=== PATIENT | female | born 1945 | race Caucasian/White ===

== ENCOUNTER 2018-03-02 08:58 | Outpatient (REF) | payer OTHER, SELFPAY ==
[2018-03-02 20:25] LABS: BUN 14 mg/dL (7-18); CREATININE 0.73 mg/dL (0.55-1.02); Chloride 102 mmol/L (98-107); Glucose 98 mg/dL (70-100); Potassium 3.9 mmol/L (3.5-5.1); Sodium 140 mmol/L (136-145); TSH (W/Ref FT4) 1.18 uIU/mL (0.358-3.74)
[2018-03-03 13:21] LABS: Calcium 9.1 mg/dL (8.5-10.1)
== END 2018-03-02 09:18 ==
LOC: NCHCN 08:58
PROVIDERS: PCP Nurse Practitioner Family; Visit Provider Specialist/Technologist Athletic Trainer
DX: E03.9 Hypothyroidism, unspecified (principal); I10 Essential (primary) hypertension; R21 Rash and other nonspecific skin eruption
CPT/HCPCS: 80048; 84443

== ENCOUNTER 2018-03-12 00:48 | Outpatient (CLI) | payer OTHER, SELFPAY ==
--- NOTE | 2018-03-12 07:45 | DI.MAMMO_ITS ---
SYMPTOM/DIAGNOSIS: SCREENING, PREVENTIVE HEALTH CARE, Z00.00 MAMMOGRAMS: Mammograms were interpreted according to the usual protocol including computer analysis with CAD system, tomosynthesis and C view imaging. The breasts are of moderate density with fairly symmetrical distribution of fibroglandular tissue. No dominant mass or clumped microcalcification is identified in either breast. The current examination is compared with previous examinations including 02/2017 and there is increased prominence of a focal area of asymmetric density projected in the retroareolar portion of the left breast on the CC and perhaps MLO views. Additional mammographic views are requested to include CC and MLO spot compression views of the left breast. CONCLUSION: Additional mammographic views left breast requested as described above. Breast ultrasound may be indicated as well depending on the results of the additional mammographic views. Category 1. Breast density, category B. MQSA ASSESSMENT OF FINDINGS: Incomplete: Needs additional imaging evaluation. Category 0. Patient will receive a letter notifying them of these results. BI-RADS category B. There are scattered areas of fibroglandular density.
== END 2018-03-12 01:08 ==
PROVIDERS: PCP Specialist/Technologist Athletic Trainer; Visit Provider Specialist/Technologist Athletic Trainer
DX: Z12.31 Encounter for screening mammogram for malignant neoplasm of breast (principal); R92.8 Other abnormal and inconclusive findings on diagnostic imaging of breast
CPT/HCPCS: 77063; 77067

== ENCOUNTER 2018-03-31 00:54 | Outpatient (CLI) | payer OTHER, SELFPAY ==
--- NOTE | 2018-03-31 10:35 | DI.COMBO_ITS ---
SYMPTOMS/DIAGNOSIS: F/U MAMMO, FOCAL AREA OF ASYMMETRIC DENSITY LT ADDITIONAL MAMMOGRAPHIC VIEWS LEFT BREAST AND LEFT BREAST ULTRASOUND: Additional images are interpreted according to the usual protocol including tomosynthesis and 2D imaging. Additional mammographic views of the left breast and left breast ultrasound are interpreted in conjunction. These examinations were obtained to evaluate questionable new area of nodularity in central retroareolar left breast seen on recent mammogram. Additional mammographic views show some faint persistent well circumscribed nodularity at this site seen most clearly on CC view. Breast ultrasound shows multiple small breast cysts. The largest of which is a septated cyst measuring about 7 mm in greatest diameter in the 1-2 o'clock position in the breast. There is a 5 mm in diameter partially cystic mass which contains a rounded solid component which is noted in the 12:00 o'clock position in the breast 3 cm from the nipple. Additionally a 3 mm in diameter solid rim calcified nodule is seen. I would note that there is also probable rim calcification although I can not absolutely confirm it to be present in the lesion with the solid component in the 12:00 o'clock position. No doppler abnormality is identified involving any of the intramammary cysts or nodules. CONCLUSION: Probably benign findings in the left breast. Follow up left breast mammogram and left breast ultrasound recommended in 6 months. Category 3. Breast density Category B. MQSA ASSESSMENT OF FINDINGS: Probably benign. Six month follow-up recommended. Category 3. Patient will receive a letter notifying them of these results. BI-RADS category B. There are scattered areas of fibroglandular density.
== END 2018-03-31 01:14 ==
PROVIDERS: PCP Specialist/Technologist Athletic Trainer; Visit Provider Specialist/Technologist Athletic Trainer
DX: R92.8 Other abnormal and inconclusive findings on diagnostic imaging of breast (principal); Z12.31 Encounter for screening mammogram for malignant neoplasm of breast
CPT/HCPCS: 76642; 77063; 77067

== ENCOUNTER 2018-09-29 00:30 | Outpatient (CLI) | payer OTHER, SELFPAY ==
--- NOTE | 2018-09-29 10:46 | DI.COMBO_ITS ---
SYMPTOM/DIAGNOSIS: F/U ABNL MAMMO, 6 MO F/U LEFT MAMMOGRAM AND LEFT BREAST ULTRASOUND: Mammograms were interpreted according to the usual protocol including computer analysis with CAD system, tomosynthesis and C view imaging. Left breast mammogram and left breast ultrasound were obtained to follow areas of nodularity identified mammographically and ultrasonographically on previous mammogram and ultrasound of 03/31/18. On today's examination, no mammographic change is seen with no new mass identified. Ultrasonographically, a rim calcified seen on the previous examination in the 11 o'clock position is essentially unchanged in appearance measuring up to about 6 by 3 mm. in diameter. Solid nodule previously noted in the 12 o'clock position is again seen and is unchanged in size measuring about 4 mm. in diameter. Multiple small breast cysts are also again noted. No new solid mass identified. CONCLUSION: Stable left breast nodules as described above. I would suggest that routine screening examinations resume with a bilateral mammogram in 6 months. Category 3. Breast density, category B. MQSA ASSESSMENT OF FINDINGS: Probably benign. Six month follow-up recommended. Category 3. Patient will receive a letter notifying them of these results. BI-RADS category B. There are scattered areas of fibroglandular density.
== END 2018-09-29 00:50 ==
PROVIDERS: PCP Family Medicine; Visit Provider Specialist/Technologist Athletic Trainer
DX: Z12.31 Encounter for screening mammogram for malignant neoplasm of breast (principal); R92.8 Other abnormal and inconclusive findings on diagnostic imaging of breast; N63.22 Unspecified lump in the left breast, upper inner quadrant; N60.12 Diffuse cystic mastopathy of left breast
CPT/HCPCS: 76642; 77061; 77065; G0279

== ENCOUNTER 2018-11-11 01:06 | Outpatient (CLI) | payer OTHER, SELFPAY ==
--- NOTE | 2018-11-11 14:59 | DI.COMBO_ITS ---
SYMPTOMS/DIAGNOSIS: ABNORMAL MAMMO, LEFT BREAST, R92.8, DISTORTION AT 2 O'CLOCK 9 CM FROM THE NIPPLE ADDITIONAL MAMMOGRAPHIC VIEWS, LEFT BREAST AND LEFT BREAST ULTRASOUND: Additional images are interpreted according to the usual protocol including tomosynthesis and 2D imaging. Additional mammographic views of the left breast and left breast ultrasound were obtained to evaluate an area of asymmetric density with questionable architectural distortion seen in the lateral portion of the left breast on recent mammograms. Additional mammographic views confirm an area of architectural distortion. Comparison with multiple previous tomosynthesis images from 2014, 2015, 2016 and 2017 show no change in appearance in comparison with the previous examinations. Breast ultrasound of this area shows no evidence of a mass. Incidentally, multiple retroareolar left breast cysts are noted, the largest measuring roughly 7 mm in greatest diameter. CONCLUSION: Stable focus of architectural distortion of the lateral aspect of the left breast. No evidence of malignancy. Follow-up mammogram suggested in six months, which should be a bilateral mammogram to resume routine screening of the contralateral breast. Category 3, breast density category B. MQSA ASSESSMENT OF FINDINGS: Probably benign. Six month follow-up recommended. Category 3. Patient will receive a letter notifying them of these results. BI-RADS category B. There are scattered areas of fibroglandular density.
== END 2018-11-11 01:26 ==
PROVIDERS: PCP Family Medicine; Visit Provider Nurse Practitioner Family
DX: Z13.21 Encounter for screening for nutritional disorder (principal); R92.8 Other abnormal and inconclusive findings on diagnostic imaging of breast; N60.12 Diffuse cystic mastopathy of left breast; N60.82 Other benign mammary dysplasias of left breast
CPT/HCPCS: 76642; 77063; 77067

== ENCOUNTER 2019-04-28 09:15 | Outpatient (CLI) | payer OTHER, SELFPAY ==
[2019-04-28 12:15] LABS: Anion Gap 8.3 mmol/L (3-11); BUN 16 mg/dL (7-18); CO2 29.7 mmol/L (21.0-32.0); CREATININE 0.75 mg/dL (0.55-1.02); Calcium 9.2 mg/dL (8.5-10.1); Calculated LDL 139 mg/dL; Chloride 102 mmol/L (98-107); Cholesterol 218 mg/dL (<200); Glucose 95 mg/dL (74-106); HDL Cholesterol 61 mg/dL (40-60); Potassium 3.7 mmol/L (3.5-5.1); Sodium 140 mmol/L (136-145); TSH (W/Ref FT4) 1.58 uIU/mL (0.36-3.74); Triglyceride 94 mg/dL (<150)
== END 2019-04-28 09:35 ==
PROVIDERS: PCP Nurse Practitioner Family; Visit Provider Nurse Practitioner Family
DX: E03.9 Hypothyroidism, unspecified (principal); I10 Essential (primary) hypertension
CPT/HCPCS: 36415; 80048; 80061; 84443

== ENCOUNTER 2019-06-01 00:33 | Outpatient (CLI) | payer OTHER, SELFPAY ==
--- NOTE | 2019-06-01 12:43 | DI.MAMMO_ITS ---
EXAM: MG MAMMO SCREENING CLINICAL HISTORY: SCREENING Z12.39. TECHNIQUE: Bilateral full field digital CC and MLO mammographic images were obtained with 3D tomosyn thesis and utilizing computer aided detection (CAD). COMPARISON: Available for comparison. FINDINGS: Masses/Architectural Distortion: There is an area of breast asymmetry in the outer left breast on the craniocaudad view. No suspicious masses are seen in the right breast. Microcalcifications: No suspicious pleomorphic-type are seen. Skin Thickening/Nipple Retraction: None. IMPRESSION: 1. Area of asymmetric breast tissue in the outer left breast seen on the craniocaudad view. 2. Additional views of the left breast are requested for further evaluation. Ultrasound may be indic ated at that time. BI-RADS Cat 0 - Assessment Incomplete: Need additional imaging evaluation Breast Density - Category B - Scattered areas of fibroglandular density A negative radiographic report should not delay biopsy if a dominant or clinically suspicious mass is present. Up to ten percent of cancers are not identified on mammography. A negative report may reinforce clinical impression. Adenosis and dense breasts may obscure an underlying neoplasm. False positive reports average 6 to 10%. Patient will receive a letter notifying them of these results.
== END 2019-06-01 00:53 ==
PROVIDERS: PCP Nurse Practitioner Family; Visit Provider Nurse Practitioner Family
DX: Z12.31 Encounter for screening mammogram for malignant neoplasm of breast (principal)
CPT/HCPCS: 77063; 77067

== ENCOUNTER 2019-06-09 01:43 | Outpatient (CLI) | payer OTHER, SELFPAY ==
--- NOTE | 2019-06-09 08:43 | DI.MAMMO_ITS ---
EXAM: MG MAMMO SCREEN CALL BACK UNI and breast ultrasound CLINICAL HISTORY: F/U MAMMO, ASYMMETRY IN OUTER LT BREAST. TECHNIQUE: Craniocaudal and mediolateral oblique Full Field Digital Mammography views of the left br east with Computer Aided Diagnosis followed by Tomosynthesis and left breast ultrasound. COMPARISON: No exams were available for comparison FINDINGS: Mammography/Tomosynthesis: Masses/Architectural Distortion: None seen. Microcalcifictions: No suspicious pleomorphic-type are seen. Skin Thickening/Nipple Retraction: None. Left breast US: Echotexture: Normal appearance of the glandular tissue. Shadowing: No suspicious foci. Cyst: Benign-appearing cysts are seen. Solid lesions: None seen. Ductal dilation: None. IMPRESSION: 1. No evidence of malignancy is noted. 2. A six-month follow-up left mammogram is recommended for re-evaluation. BI-RADS Cat 3 - 6 month - Probably Benign Finding: Recommend follow-up mammography in 6 months Breast Density - Category B - Scattered areas of fibroglandular density Findings were discussed with the patient on the date of the examination. A negative radiographic report should not delay biopsy if a dominant or clinically suspicious mass is present. Up to ten percent of cancers are not identified on mammography. A negative report may reinforce clinical impression. Adenosis and dense breasts may obscure an underlying neoplasm. False positive reports average 6 to 10%. Patient will receive a letter notifying them of these results.
--- NOTE | 2019-06-09 09:14 | DI.US_ITS ---
EXAM: MG MAMMO SCREEN CALL BACK UNI and breast ultrasound CLINICAL HISTORY: F/U MAMMO, ASYMMETRY IN OUTER LT BREAST. TECHNIQUE: Craniocaudal and mediolateral oblique Full Field Digital Mammography views of the left br east with Computer Aided Diagnosis followed by Tomosynthesis and left breast ultrasound. COMPARISON: No exams were available for comparison FINDINGS: Mammography/Tomosynthesis: Masses/Architectural Distortion: None seen. Microcalcifictions: No suspicious pleomorphic-type are seen. Skin Thickening/Nipple Retraction: None. Left breast US: Echotexture: Normal appearance of the glandular tissue. Shadowing: No suspicious foci. Cyst: Benign-appearing cysts are seen. Solid lesions: None seen. Ductal dilation: None. IMPRESSION: 1. No evidence of malignancy is noted. 2. A six-month follow-up left mammogram is recommended for re-evaluation. BI-RADS Cat 3 - 6 month - Probably Benign Finding: Recommend follow-up mammography in 6 months Breast Density - Category B - Scattered areas of fibroglandular density Findings were discussed with the patient on the date of the examination. A negative radiographic report should not delay biopsy if a dominant or clinically suspicious mass is present. Up to ten percent of cancers are not identified on mammography. A negative report may reinforce clinical impression. Adenosis and dense breasts may obscure an underlying neoplasm. False positive reports average 6 to 10%. Patient will receive a letter notifying them of these results. EXAM: US BREAST LT LIMITED CLINICAL HISTORY: ABNORMAL LEFT MAMMO TECHNIQUE: Ultrasound performed using standard protocol. COMPARISON: US breast LT limited from 11/11/2018 FINDINGS: IMPRESSION:
== END 2019-06-09 02:03 ==
PROVIDERS: PCP Nurse Practitioner Family; Visit Provider Nurse Practitioner Family
DX: Z12.31 Encounter for screening mammogram for malignant neoplasm of breast (principal); R92.8 Other abnormal and inconclusive findings on diagnostic imaging of breast; N60.12 Diffuse cystic mastopathy of left breast
CPT/HCPCS: 76642; 77063; 77067

== ENCOUNTER 2019-12-14 01:56 | Outpatient (CLI) | payer OTHER, SELFPAY ==
--- NOTE | 2019-12-14 | DI.MAMMO_ITS ---
EXAM: MG MAMMO DIAGNOSTIC UNI CLINICAL HISTORY: F/U ABNL MAMMO, 6 MO F/U, R92.8. COMPARISON: 2010 through 2018 as well as 09 June 2019. TECHNIQUE: Craniocaudal and mediolateral oblique Full Field Digital Mammography views of the left br east with Computer Aided Diagnosis FINDINGS: Mammography/Tomosynthesis: Masses/Architectural Distortion: None seen. There has been no change in the tissue of the lateral por tion of the left breast when compared with the previous examinations. Microcalcifications: No suspicious pleomorphic-type are seen. Benign calcifications. Skin Thickening/Nipple Retraction: None. IMPRESSION: 1. No evidence of malignancy is noted. 2. Unless there is more urgent need, follow-up screening mammography is recommended, as per [employer] guidelines. BI-RADS Category 2 - Benign Findings Breast Density - Category B - Scattered areas of fibroglandular density: A negative radiographic report should not delay biopsy if a dominant or clinically suspicious mass is present. Up to ten percent of cancers are not identified on mammography. A negative report may reinforce clinical impression. Adenosis and dense breasts may obscure an underlying neoplasm. False positive reports average 6 to 10%. Patient will receive a letter notifying them of these results.
== END 2019-12-14 02:16 ==
PROVIDERS: PCP Nurse Practitioner Family; Visit Provider Nurse Practitioner Family
DX: R92.8 Other abnormal and inconclusive findings on diagnostic imaging of breast (principal); R92.2 Inconclusive mammogram; R92.1 Mammographic calcification found on diagnostic imaging of breast
CPT/HCPCS: 77061; 77065; G0279

== ENCOUNTER 2020-05-02 09:41 | Outpatient (REF) | payer OTHER, SELFPAY ==
[2020-05-02 21:05] LABS: Anion Gap 8.2 mmol/L (3-11); BUN 16 mg/dL (7-18); CO2 28.8 mmol/L (21.0-32.0); CREATININE 0.71 mg/dL (0.55-1.02); Calculated LDL 110 mg/dL (<100); Chloride 105 mmol/L (98-107); Cholesterol 187 mg/dL (<200); Glucose 101 mg/dL (74-106); HDL Cholesterol 61 mg/dL (40-60); Potassium 3.5 mmol/L (3.5-5.1); Sodium 142 mmol/L (136-145); TSH 0.95 uIU/mL (0.36-3.74); Triglyceride 80 mg/dL (<150)
== END 2020-05-02 10:01 ==
LOC: NCHCN 09:41
PROVIDERS: PCP Nurse Practitioner Family; Visit Provider Nurse Practitioner Family
DX: I10 Essential (primary) hypertension (principal); E03.9 Hypothyroidism, unspecified; E66.9 Obesity, unspecified
CPT/HCPCS: 80048; 80061; 84443

== ENCOUNTER 2020-05-07 14:56 | Outpatient (RCR) | payer OTHER, SELFPAY ==
--- NOTE | 2020-05-07 15:15 | HOLTER_ITS ---
APPROVED REPORT Exam Type: HOLTER MONITOR APPLICATION Reason for Test: I49.9 Patient Location: O Conclusion This is a 48-hour Holter monitor Atrial fibrillation was present throughout with an average heart rate of 82. Minimum heart rate was 57, maximum 131 There were very rare isolated ventricular ectopic beats Longest RR interval was 2.59 seconds Patient symptoms corresponded to atrial fibrillation rate 95
== END 2020-05-17 23:59 | disposition home or self-care (01) ==
LOC: RT 14:56
PROVIDERS: PCP Nurse Practitioner Family; Visit Provider Nurse Practitioner Family
DX: I49.8 Other specified cardiac arrhythmias (principal); I10 Essential (primary) hypertension; Z82.49 Family history of ischemic heart disease and other diseases of the circulatory system; I48.91 Unspecified atrial fibrillation
CPT/HCPCS: 93225; 93226

== ENCOUNTER 2020-05-16 15:36 | Outpatient (REF) | payer OTHER, SELFPAY ==
[2020-05-16 20:50] LABS: HCT 41.7 % (36.0-46.0); HGB 13.6 g/dL (11.2-15.7); MCH 31.1 pg (27.0-33.0); MCHC 32.6 % (32.0-36.0); MCV 95.4 fL (80-95); MPV 11.6 fL (8.0-11.0); Platelet Count 188 10^3/uL (130-400); RBC 4.37 10^6/uL (3.93-5.22); RDW-SD 49.2 fL; WBC 5.75 10^3/uL (4.4-10.8)
[2020-05-16 21:20] LABS: Ferritin 54 ng/mL (8-252)
[2020-05-17 04:45] LABS: Vitamin D 25 Total 35.2 ng/ml (30-100)
== END 2020-05-16 15:56 ==
LOC: NCHCN 15:36
PROVIDERS: PCP Nurse Practitioner Family; Visit Provider Nurse Practitioner Family
DX: I48.91 Unspecified atrial fibrillation (principal); Z79.01 Long term (current) use of anticoagulants; E66.8 Other obesity
CPT/HCPCS: 82306; 85027; 82728

== ENCOUNTER 2020-06-05 01:33 | Outpatient (CLI) | payer OTHER, SELFPAY ==
--- NOTE | 2020-06-05 13:25 | DI.US_ITS ---
APPROVED REPORT EXAM: Comprehensive 2D, Doppler, and color-flow Echocardiogram Patient Location: Out-Patient [employer]: Tesha Guthrie RDCS (AE) Indications: New A Fib Other Information Study Quality: Adequate Conclusion Normal left ventricular wall thickness and chamber size. Estimated ejection fraction is 55 to 60%. Wall motion is normal Normal right ventricular size and systolic function Mildly dilated left atrium. Right atrium is normal in size Normal aortic valve without stenosis or regurgitation Moderate mitral annular calcification. Trace mitral regurgitation Normal tricuspid valve with trace to mild regurgitation, normal estimated right ventricular systolic pressure Normal pulmonic valve Mildly dilated ascending aorta Wall motion Left Ventricle The left ventricle is grossly normal size. Left ventricle is borderline dilated. Left ventricle is mi ldly dilated. The left ventricular systolic function is normal. The left ventricular ejection fractio n is within the normal range. There is normal left ventricular wall thickness. There is normal LV seg mental wall motion. There is no ventricular septal defect visualized. LVEF is 55-60%. Right Ventricle The right ventricle is normal size. The right ventricular systolic function is normal. The RVSP is 28 .1 mmHg. Atria Left atrium is mildly dilated. The right atrium size is normal. The interatrial septum is intact with no evidence for an atrial septal defect. Aortic Valve The aortic valve is normal in structure. Aortic valve is trileaflet. There is no aortic valvular sten osis. No aortic regurgitation is present. Mitral Valve Moderate mitral annular calcification. No evidence of mitral valve stenosis. Trace mitral regurgitati on. Tricuspid Valve The tricuspid valve is normal in structure. There is no tricuspid valve stenosis. Trace to mild tricu spid regurgitation. Pulmonic Valve The pulmonary valve is normal in structure. There is no pulmonic valvular stenosis. There is no pulmo real valvular regurgitation. Great Vessels The aortic root is normal in size. The ascending aorta is mildly dilated. Aortic arch is not well vis ualized. IVC is normal in size and collapses >50% with inspiration. Pericardium There is no pericardial effusion. 2D Dimensions IVSD d PLAX 0.93 cm F: 0.6-1.0 LV Vol A2C d MOD 63.8 mL LVPW d PLAX 0.86 cm F: 0.6 - 1.0 LV Vol A4C d MOD 64.9 mL LVID d PLAX 4.03 cm F: 3.8 - 5.2 LA vol/ BSA A2C s A-L 34.8 mL/m2 LVDs 2.90 cm F: 2.2 - 3.5 LA vol/ BSA A4C s A-L 29.7 mL/m2 Ao Root d 2.70 cm F: 2.7 - 3.3 LA Vol/ BSA Biplane s A-L 32.5 mL/m2 RA Area A4C 13.18 cm2 LA Area A4C s MOD 20.41 cm2 RA Vol/ BSA A4C s A-L 15.5 mL/m2 LA Area A2C s MOD 21.81 cm2 Ao Asc Diam d 3.27 cm F: 2.3 - 3.1 LV EF A4C MOD 54.8 % LV EF Teichholz 53.6 % LV EF A2C MOD 50.9 % LVEF (Silveira's) 51.11 % F: 54 - 74 LV EF Biplane MOD 51.1 % LV Volume 49.44 mL F: 46 - 106 SV 33.50 mL LV Volume Index 25.22 mL/m2 F: 29 - 61 SV Index 17.04 mL/m2 LV Vol Biplane MOD 65.5 mL FS 27.20 % M-Mode TAPSE 2.45 cm (M/F) >1.7 LV Diastology MV E' medial 0.202 (>0.07 m/s) MV E Vmax 1.24 (0.4-1.3 m/s) LV E/e MED 6.15 (<14) MV E' lateral 0.130 (>0.1 m/s) LV E/e LAT 9.50 (<14) MV E/E' medial 6.15 MV E/E' lateral 9.54 Aortic Valve LVOT Area 2.99 cm2 AoV Area Vmax 1.68 cm2 LVOT Vmax 1.02 m/s AoV Area/ BSA (Vmax) 0.86 cm2/m2 LVOT Mean Winston. 0.66 m/s NATE Mean Winston. 1.67 cm2 LVOT Peak Grad 4.2 mmHg NATE Mean Winston. Index 0.85 cm2/m2 LVOT Mean Grad 2.0 mmHg LVOT VTI 0.240 m LVOT Diam s 1.90 cm AoV Vmax 1.81 m/s Velocity Ratio 0.56 AoV Mean Winston. 1.17 m/s AoV Peak Grad 13.2 mmHg LVOT SV 71.66 mL AoV Mean Grad 6.2 mmHg AoV VTI 0.354 m AoV Area VTI 2.02 cm2 AoV Area/ BSA (VTI) 1.03 cm/m2 Mitral Valve MV DT 210 (160-240 msec) MV PHT 61 msec MV Area PHT 3.62 cm2 MV VTI 0.324 m MV VTI Annulus 0.331 m MV Area VTI 2.27 (4.0-6.0 cm2) Pulmonary Valve PV Vmax 1.05 (0.5-1.5 m/s) RVOT Peak Gr. 2.38 mmHg PV Peak Grad 4.4 mmHg RVOT Mean Gr. 1.25 mmHg PV Mean Grad 1.9 mmHg RVOT VTI 0.160 m PV VTI 0.193 m RVOT Vmax 0.77 m/s Tricuspid Valve TR Peak Grad 25.1 mmHg TR Vmax 2.51 m/s RA Pressure 3.00 mmHg RVSP (TR) 28.1 mmHg
== END 2020-06-05 01:53 ==
PROVIDERS: PCP Nurse Practitioner Family; Visit Provider Nurse Practitioner Family
DX: I07.1 Rheumatic tricuspid insufficiency (principal)
CPT/HCPCS: 93306

== ENCOUNTER 2020-06-22 12:39 | Outpatient (CLI) | payer OTHER, SELFPAY ==
--- NOTE | 2020-06-22 13:00 | RT.EKG_ITS ---
APPROVED REPORT Exam: Resting ECG Patient Location: O Conclusion Atrial fibrillation at a rate of 73. No acute T or ST changes
== END 2020-06-22 12:40 | disposition home or self-care (01) ==
LOC: DI.CARD 13:04
PROVIDERS: PCP Nurse Practitioner Family; Referring Provider Nurse Practitioner Family; Visit Provider Internal Medicine Cardiovascular Disease
DX: I48.91 Unspecified atrial fibrillation (principal)
CPT/HCPCS: 93010

== ENCOUNTER → 2020-06-22 12:39 | Outpatient (BNVA) | payer OTHER, SELFPAY | PROVIDERS: PCP Nurse Practitioner Family; Referring Provider Nurse Practitioner Family; Visit Provider Internal Medicine Cardiovascular Disease | DX: I48.91 Unspecified atrial fibrillation (principal) | CPT/HCPCS: 99204; 99205 ==

== ENCOUNTER 2020-07-02 11:08 | Outpatient (REF) | payer OTHER, SELFPAY ==
--- NOTE | 2020-07-02 10:00 | SKI_PTH ---
PATIENT: Emily Becerra LOC: [facility] U#:[id number] AGE/SX: 74/F ROOM: RE07/02/[address]: Jordan Goldberg DO : 1945 BED: DIS: 07/02/2020 SPEC #: [id number] RECD: 07/02/20 18:28 STATUS: ALEE REQ #: [id number] MARIA ELENA: 07/02/20 10:[address]: Jordan Goldberg DEPT: Surgical Specimen RECD BY: Carrie Florentino ENTERED: 07/02/20 18:29 SP TYPE: SKI OT DR: Siobhan Arriaza Tissues: 1 - SKIN BIOPSY(SHAVE/PUNCH) Procedures: SKIN LEVEL 4 Comments: [id number]
== END 2020-07-02 11:09 | disposition home or self-care (01) ==
LOC: LBN 11:08
PROVIDERS: PCP Nurse Practitioner Family; Visit Provider Otolaryngology Otolaryngology/Facial Plastic Surgery
DX: L82.1 Other seborrheic keratosis (principal); L81.8 Other specified disorders of pigmentation
CPT/HCPCS: 88305

== ENCOUNTER 2020-08-01 01:10 | Outpatient (CLI) | payer OTHER, SELFPAY ==
--- NOTE | 2020-08-01 | DI.MRI_ITS ---
EXAM: MR BRAIN WO CLINICAL HISTORY: [place],R42,A FIB,I48.91 TECHNIQUE: Multisequence MRI scan of the brain was performed on 1.5 jhon unit. COMPARISON: No exams were available for comparison FINDINGS: CEREBRAL PARENCHYMA: No evidence of intracranial hemorrhage, mass effect nor shift of midline structu re. No extraaxial fluid collections. Ventricles are not enlarged nor shifted. There is no significant focal signal abnormality in the cerebellar hemispheres nor within the crys, m idbrain, and thalami. There are multiple foci of subcentimeter periventricular signal abnormality probably consistent with chronic ischemic changes. These are not associated with hemorrhage or surrounding edema nor abnormal focal signal on diffusion imaging to suggest recent ischemic event. PITUITARY GLAND: No mass nor parasellar abnormality. No obvious abnormality in the cavernous sinuses. FLOW VOIDS: The expected flow void are noted. No evidence of obvious aneurysm nor obvious vascular ma lformation. PARANASAL SINUSES: The visualized paranasal sinuses appear unremarkable. ORBITS: No obvious abnormal findings. IMPRESSION: 1. There are multiple small foci of subcentimeter signal abnormality in the Nicole and supraventricular white matter, probably related to chronic ischemic changes. There is no evidence of acute territori al nor lacunar infarction. No evidence of intracranial hemorrhage. DATA REPOSITORY:
== END 2020-08-01 01:30 ==
PROVIDERS: PCP Nurse Practitioner Family; Visit Provider Nurse Practitioner Family
DX: R42 Dizziness and giddiness (principal); I48.91 Unspecified atrial fibrillation; R94.02 Abnormal brain scan
CPT/HCPCS: 70551

== ENCOUNTER 2020-08-17 03:31 | Outpatient (CLI) | payer OTHER, SELFPAY ==
--- NOTE | 2020-08-17 12:53 | DI.MAMMO_ITS ---
EXAM: MAMMO SCREENING CLINICAL HISTORY: SCREENING,Z12.31 TECHNIQUE: Mammograms were interpreted according to the usual protocol including computer analysis w VideoStep system, tomosynthesis and C-view imaging. COMPARISON: FINDINGS: Breast are of moderate density with fairly symmetrical distribution of fibroglandular tissue. An are a of architectural distortion of the lateral aspect of left breast seen on CC view is unchanged from multiple prior studies. There is no evidence of mass or clumped microcalcification of either breast. No other significant change seen. IMPRESSION: No specific evidence of malignancy at this time. Routine screening examinations are suggested at yea rly intervals in this age group according to the ACS ACR guidelines. BI-RADS Category 1 - Negative Breast Density - Category B - Scattered areas of fibroglandular density
== END 2020-08-17 03:51 ==
PROVIDERS: PCP Nurse Practitioner Family; Visit Provider Nurse Practitioner Family
DX: Z12.31 Encounter for screening mammogram for malignant neoplasm of breast (principal)
CPT/HCPCS: 77063; 77067

== ENCOUNTER 2021-05-01 15:20 | Outpatient (REF) | payer OTHER, SELFPAY ==
[2021-05-01 13:41] LABS: Bacteria Rare HPF (Negative); Casts Negative LPF (Negative); Crystals Negative HPF (Negative); Epithelial Cells Negative HPF (Negative); Mucus Negative (Negative); RBC Negative HPF (0-2); WBC Negative HPF (0-5)
[2021-05-01 13:42] LABS: C & S Indicated? C&S Done As Ordered; Other Cells Negative (Negative)
[2021-05-01 14:03] LABS: BUN 15 mg/dL (7-18); CREATININE 0.8 mg/dL (0.55-1.02); Calcium 8.8 mg/dL (8.5-10.1); Calculated LDL 81 mg/dL (<100); Chloride 101 mmol/L (98-107); Cholesterol 145 mg/dL (<200); Glucose 83 mg/dL (74-106); HDL Cholesterol 51 mg/dL (40-60); Potassium 3.3 mmol/L (3.5-5.1); Sodium 139 mmol/L (136-145); TSH 1.49 uIU/mL (0.36-3.74); Triglyceride 69 mg/dL (<150)
[2021-05-01 14:25] LABS: FREE T4 1.61 ng/dL (0.76-1.46)
== END 2021-05-01 15:21 | disposition home or self-care (01) ==
LOC: NCHCN 15:20
PROVIDERS: PCP Nurse Practitioner Family; Visit Provider Nurse Practitioner Family
DX: I10 Essential (primary) hypertension (principal); E03.9 Hypothyroidism, unspecified; N89.8 Other specified noninflammatory disorders of vagina; R82.90 Unspecified abnormal findings in urine
CPT/HCPCS: 80048; 80061; 81015; 84439; 84443; 87086; 87480; 87510; 87660

== ENCOUNTER → 2021-05-31 09:49 | Outpatient (BNVA) | payer OTHER, SELFPAY | PROVIDERS: PCP Nurse Practitioner Family; Referring Provider Nurse Practitioner Family; Visit Provider Internal Medicine Cardiovascular Disease | DX: I48.91 Unspecified atrial fibrillation (principal) | CPT/HCPCS: 99214; 99213 ==

== ENCOUNTER 2021-07-15 14:58 | Outpatient (REF) | payer OTHER, SELFPAY ==
[2021-07-15 15:53] LABS: FREE T4 1.33 ng/dL (0.76-1.46); TSH 2.29 uIU/mL (0.36-3.74)
== END 2021-07-15 14:59 | disposition home or self-care (01) ==
LOC: NCHCN 14:58
PROVIDERS: PCP Nurse Practitioner Family; Visit Provider Nurse Practitioner Family
DX: E03.9 Hypothyroidism, unspecified (principal)
CPT/HCPCS: 84439; 84443

== ENCOUNTER 2021-08-22 01:14 | Outpatient (CLI) | payer MEDICARE, SELFPAY ==
--- NOTE | 2021-08-22 08:30 | DI.MAMMO_ITS ---
Exam(s) MAMMO SCREENING EXAM: MAMMO SCREENING CLINICAL HISTORY: SCREENING, Z12.31 TECHNIQUE: Bilateral full field digital CC and MLO mammographic images were obtained with 3D tomosyn thesis and utilizing computer aided detection (CAD). COMPARISON: Available for comparison. FINDINGS: Masses/Architectural Distortion: None seen. Microcalcifications: No suspicious pleomorphic-type are seen. Skin Thickening/Nipple Retraction: None. IMPRESSION: 1. No significant interval change with no specific features of malignancy noted. 2. Unless there is more urgent need, screening mammography is recommended, as per [place] [employer] guidelines. BI-RADS Category 1 - Negative Breast Density - Category B - Scattered areas of fibroglandular density Breast density category C or D implies that the patient has dense breast tissue. Dense breast tissue is very common and is not abnormal but dense breast tissue can make it harder to find cancer on a ma mmogram. Also, dense breast tissue may increase their breast cancer risk. This information about the result of the mammogram report was provided to the patient to raise their awareness. Use this report when you speak with the patient about their risks for breast cancer, which includes their family hist ory. At that time, you may recommend for more screening tests (Ultrasound or MRI) as they might be us eful based on their risk. A negative radiographic report should not delay biopsy if a dominant or clinically suspicious mass is present. Up to ten percent of cancers are not identified on mammography. A negative report may reinforce clinical impression. Adenosis and dense breasts may obscure an underlying neoplasm. False positive reports average 6 to 10%. Patient will receive a letter notifying them of these results.
== END 2021-08-22 01:34 ==
PROVIDERS: PCP Nurse Practitioner Family; Visit Provider Nurse Practitioner Family
DX: Z12.31 Encounter for screening mammogram for malignant neoplasm of breast (principal)
CPT/HCPCS: 77063; 77067

== ENCOUNTER 2022-05-06 18:10 | Outpatient (REF) | payer MEDICARE, SELFPAY ==
[2022-05-06 16:35] LABS: ALT 30 U/L (14-59); AST 22 U/L (15-37); Albumin 3.5 g/dL (3.4-5.0); Alkaline Phosphatase 80 U/L (46-116); BUN 16 mg/dL (7-18); Bilirubin, Total 0.6 mg/dL (0.2-1.0); CREATININE 0.8 mg/dL (0.55-1.02); Calcium 9.3 mg/dL (8.5-10.1); Calculated LDL 110 mg/dL (<100); Chloride 100 mmol/L (98-107); Cholesterol 211 mg/dL (<200); Estimated GFR 76.31 (mL/min/1.73m2); Glucose 100 mg/dL (74-106); HDL Cholesterol 82 mg/dL (40-60); Potassium 3.5 mmol/L (3.5-5.1); Sodium 137 mmol/L (136-145); TSH 3.81 uIU/mL (0.36-3.74); Total Protein 7.3 g/dL (6.4-8.2); Triglyceride 95 mg/dL (<150)
[2022-05-06 16:53] LABS: FREE T4 1.32 ng/dL (0.76-1.46)
== END 2022-05-06 18:11 | disposition home or self-care (01) ==
LOC: NCHCN 18:10
PROVIDERS: PCP Nurse Practitioner Family; Visit Provider Nurse Practitioner Family
DX: E03.9 Hypothyroidism, unspecified (principal); E78.9 Disorder of lipoprotein metabolism, unspecified; I10 Essential (primary) hypertension; I48.91 Unspecified atrial fibrillation
CPT/HCPCS: 80053; 80061; 84439; 84443

== ENCOUNTER → 2022-05-23 08:51 | Outpatient (BNVA) | payer MEDICARE, SELFPAY | PROVIDERS: PCP Nurse Practitioner Family; Visit Provider Internal Medicine Cardiovascular Disease | DX: I48.91 Unspecified atrial fibrillation (principal) | CPT/HCPCS: 99213 ==

== ENCOUNTER 2022-07-14 13:36 | Outpatient (REF) | payer MEDICARE, SELFPAY ==
[2022-07-14 16:09] LABS: HCT 39.8 % (36.0-46.0); HGB 13.4 g/dL (11.2-15.7); MCH 31.8 pg (27.0-33.0); MCHC 33.7 % (32.0-36.0); MCV 95 fL (80-95); MPV 11.3 fL (8.0-11.0); Platelet Count 237 10^3/uL (130-400); RBC 4.21 10^6/uL (3.93-5.22); RDW 14.6 % (11.7-14.6); WBC 7.31 10^3/uL (4.4-10.8)
[2022-07-14 16:28] LABS: Anion Gap 8.4 mmol/L (3-11); BUN 13 mg/dL (7-18); CO2 28.6 mmol/L (21.0-32.0); CREATININE 0.8 mg/dL (0.55-1.02); Calcium 9.3 mg/dL (8.5-10.1); Chloride 101 mmol/L (98-107); Estimated GFR 76.31 (mL/min/1.73m2); Glucose 93 mg/dL (74-106); Potassium 3.5 mmol/L (3.5-5.1); Sodium 138 mmol/L (136-145)
== END 2022-07-14 13:37 | disposition home or self-care (01) ==
LOC: NCHCN 13:36
PROVIDERS: PCP Nurse Practitioner Family; Visit Provider Nurse Practitioner Family
DX: Z01.818 Encounter for other preprocedural examination (principal); Z01.812 Encounter for preprocedural laboratory examination; I48.19 Other persistent atrial fibrillation; I10 Essential (primary) hypertension
CPT/HCPCS: 80048; 85027

== ENCOUNTER 2022-07-18 01:09 | Outpatient (CLI) | payer MEDICARE, SELFPAY ==
--- NOTE | 2022-07-18 10:45 | DI.RAD_ITS ---
Exam(s) XR HIP LT COMPLETE AP PELVIS EXAM: XR HIP LT COMPLETE AP PELVIS CLINICAL HISTORY: LT GROIN PAIN, R10.32; ? OA. TECHNIQUE: 2D digital imaging was performed. COMPARISON: No exams were available for comparison FINDINGS: Two views: No evidence of pelvic nor hip fracture. However, there are significant degenerative changes in the l eft hip joint. Hip joint space narrowing. Osteophytes femoral head and acetabulum. Lesser amount o f degenerative change in the opposite-right knee. There is osteitis symphysis pubis incidentally not ed. The sacroiliac joints appear unremarkable. No lytic osseous lesions. IMPRESSION: Asymmetric degenerative changes in the left hip. DATA REPOSITORY: RADIATION DOSE DELIVERED:
== END 2022-07-18 01:29 ==
LOC: DI 01:09
PROVIDERS: PCP Nurse Practitioner Family; Visit Provider Nurse Practitioner Family
DX: M25.552 Pain in left hip (principal); R10.32 Left lower quadrant pain; M16.12 Unilateral primary osteoarthritis, left hip
CPT/HCPCS: 73502

== ENCOUNTER 2022-07-25 07:57 | Day surgery (SDC) | payer MEDICARE, SELFPAY ==
[2022-07-25] MEDS: Tropicam./Phenyleph. (1/2.5%) 5 ML BTL OD ×3 (08:33→08:51)
[2022-07-25 08:34] VITALS: BP 145/68; PULSE 68; RESP 16; TEMP 36.2; O2SAT 98
--- NOTE | 2022-07-25 08:50 | W.ANESPRE ---
General Info Date of Service Date Performed: 07/25/22 Height: 5 ft 3 in Weight: 97.6 kg Body Mass Index (BMI): 38.1 Surgical Procedure: Operation Date: 07/25/22 09:55 Proposed Procedure Side Surgeon p Cataract Extraction with IOL Implant Right Demetrio Maya MD Meds Allergies and Home Medications Allergies Allergy/AdvReac Type Severity Reaction Status Date / Time Penicillins Allergy Mild rash Verified 07/25/22 08:28 Home Medication Medication Instructions Recorded hydrochlorothiazide 25 mg tablet 25 mg PO DAILY 03/24/16 syncuhajmsfv-kaogxmwn-svsz 1 ea PO BID 05/07/16 fumarate 7.5 mg-folic acid 400 mcg tablet metoprolol succinate 25 mg 25 mg PO DAILY 05/17/20 tablet,extended release 24 hr aspirin 81 mg tablet,delayed 81 mg PO DAILY 05/01/21 release (Adult Aspirin Regimen) calcium carbonate 600 mg calcium 600 mg PO BID 05/01/21 (1,500 mg) tablet (Calcium) cholecalciferol (vitamin D3) 50 50 mcg PO DAILY 05/01/21 mcg (2,000 unit) capsule clotrimazole-betamethasone 1 1 applic topical BID 05/01/21 %-0.05 % topical cream levothyroxine 75 mcg tablet 137 mcg PO DAILY 05/31/21 (Synthroid) magnesium malate, chelate 125 mg PO DAILY 05/23/22 tumeric 100 mg-emily 150 mg-olive 1 cap PO DAILY 05/23/22 50 mg-oreg 150 mg-caprylate capsule dextrin 3 gram/3.5 gram oral powder 3 g PO DAILY 07/22/22 Current Visit Medications: Current Medications Generic Name Dose Route Start Last Admin Trade Name Freq PRN Reason Stop Dose Admin Acetaminophen 1,000 mg 07/25/22 06:00 Acetaminophen 500 Mg Tab PO Q4H PRN PRN Miscellaneous Medication 0 ml 07/25/22 06:00 07/25/22 08:40 Tropicam./Phenyleph. (1/2.5%) 5 Ml Btl OD 1 drp DIRECTED [facility] Administration Miscellaneous Medication 0 ml 07/25/22 06:00 Prednisolone 1%, Moxifloxacin 0.5%, Nepafenac 0.1% 5ml Btl OD DIRECTED [facility] Tetracaine HCl 0 ml 07/25/22 06:00 Tetracaine 0.5% 4 Ml Btl OD DIRECTED [facility] Active Problems Active Problems: Problem Status Onset Code Cortical cataract of right eye H26.9 Nuclear sclerotic cataract of right eye H25.11 Atrial fibrillation I48.91 Medical History Medical History Cataract [place] HTN (hypertension) Hypothyroidism Left groin pain Surgical History Surgical History Colonoscopy - IV Sedation (05/07/16) Tobacco Smoking/Tobacco Use Status: Former Tobacco Use Alcohol Alcohol Intake: current Alcohol intake frequency: a few times a month Substance Use Substance use: Never Substance use type: does not use Vital Signs and Lab Results Vital Signs Most Recent Vital Signs in EMR: Most Recent Vital Signs Temp Pulse Resp BP Pulse Ox 36.2 C L 68 16 145/68 H 98 07/25/22 08:34 07/25/22 08:34 07/25/22 08:34 07/25/22 08:34 07/25/22 08:34 Lab Results Blood Type / Crossmatch: No Data to Display Complete Blood Count: White Blood Count 7.31 10^3/uL (4.4-10.8) 07/14/22 10:30 Red Blood Count 4.21 10^6/uL (3.93-5.22) 07/14/22 10:30 Hemoglobin 13.4 g/dL (11.2-15.7) 07/14/22 10:30 Hematocrit 39.8 % (36.0-46.0) 07/14/22 10:30 Platelet Count 237 10^3/uL (130-400) 07/14/22 10:30 Complete Metabolic Panel: Sodium 138 mmol/L (136-145) 07/14/22 10:30 Potassium 3.5 mmol/L (3.5-5.1) 07/14/22 10:30 Chloride 101 mmol/L (98-107) 07/14/22 10:30 Carbon Dioxide 28.6 mmol/L (21.0-32.0) 07/14/22 10:30 BUN 13 mg/dL (7-18) 07/14/22 10:30 Creatinine 0.8 mg/dL (0.55-1.02) 07/14/22 10:30 Est GFR (CKD-EPI 2021) 76.31 (mL/min/1.73m2) 07/14/22 10:30 Calcium 9.3 mg/dL (8.5-10.1) 07/14/22 10:30 Glucose 93 mg/dL (74-106) 07/14/22 10:30 Liver Function Panel: No Data to Display Coagulation Panel: No Data to Display Cardiac Panel: No Data to Display Arterial Blood Gas: No Data to Display Venous Blood Gas: No Data to Display Pancreas Panel: No Data to Display Thyroid Panel: No Data to Display Infectious Disease: No Data to Display Blood Cultures: No Data to Display Toxicology Panel: No Data to Display Imaging and Studies Imaging and Studies Study information below may be from another EMR and interpreted by another provider. Please see original notes in EMR for more complete details. EKG Summary: Conclusion Atrial fibrillation at a rate of 73. No acute T or ST changes Echocardiogram Summary: Conclusion Normal left ventricular wall thickness and chamber size. Estimated ejection fraction is 55 to 60%. Wall motion is normal Normal right ventricular size and systolic function Mildly dilated left atrium. Right atrium is normal in size Normal aortic valve without stenosis or regurgitation Moderate mitral annular calcification. Trace mitral regurgitation Normal tricuspid valve with trace to mild regurgitation, normal estimated right ventricular systolic pressure Normal pulmonic valve Mildly dilated ascending aorta Wall motion Anesthesia Assessment and Plan Anesthesia History Personal History: No History of Anesthesia Complications Family History: No Family History of Anesthesia Complications Exercise Tolerance Exercise Tolerance: Metabolic Equivalents<4 Pertinent Negatives Pertinent Negatives: No Symptoms of GERD and No Major Cardiovascular Symptoms or Complaints Cardiac & Pulmonary Exam Cardiac Exam: Normal S1/S2 Heart Sounds Pulmonary Exam: Clear Bilateral Breath Sounds Cardiac and Pulmonary Comment:: AFib persistent Implantable Cardiac Device Does patient have a Pacemaker or an ICD?: No Airway Exam Known Difficult Airway: No Mallampati Class: 3 Mouth Opening: Normal (> 3cm) Thyromental Distance: Greater than 3 cm Neck Range of Motion: Full ROM Neck Circumference: Normal Teeth Condition: Removable Dentures/Plates Upper and Removable Dentures/Plates Lower ASA Classification ASA Score: ASA 3 Emergency Case?: No NPO Status NPO Status: NPO Clears >2 hours, Solids >8 hours Anesthesia Plan Resuscitation Status: Full Code Anesthesia Technique: MAC Anesthesia Airway Planned: Natural Airway Monitors Used: Standard Monitors Preoperative Comments:: 06/09 cards note Assessment & Plan (1) Atrial fibrillation: Patient has permanent atrial fibrillation, asymptomatic. We discussed anticoagulation today and she again declines and wishes to continue with baby aspirin. No cardiac testing or medication changes were therefore recommended today. She was advised to discuss her other ongoing symptoms with primary care and return here for routine follow-up in a year
[2022-07-25 08:53] VITALS: BMI 38.1
[2022-07-25] MEDS: Tetracaine 0.5% 4 ML BTL OD (09:48)
[2022-07-25] MEDS: Duovisc Viscoelastic System EACH 1 EACH (09:48)
[2022-07-25] MEDS: Balanced Salt Soln.-PLUS 500 ML BAG (09:49)
[2022-07-25] MEDS: Lidocaine 1% Pres-Free 5 ML VIAL (09:49)
[2022-07-25] MEDS: Phenylephrine/Lidocaine (15/10) MG/ML 1 ML VIAL (09:50)
[2022-07-25] MEDS: Trypan Blue 0.06% 0.5 ML SYR (09:51)
[2022-07-25] MEDS: Povidone-Iodine Ophth 30 ML BTL (09:51)
--- NOTE | 2022-07-25 10:19 | W.PM.DSUDISC ---
Date of service: 07/25/22 Time of Service: 10:20 Discharge Plan Disposition Patient Disposition: Home Discharge Details Attending Provider: Demetrio Maya Primary Care Provider: Siobhan Arriaza Home Meds and New Rx's Prescriptions: No Action uqjjtje-jbpg-znlwy-oreg-capryl 100 mg-150 mg- 50 mg-150 mg capsule 1 cap PO DAILY magnesium malate, chelate 125 mg magnesium capsule 125 mg PO DAILY hydrochlorothiazide 25 MG tablet 25 mg PO DAILY metoprolol succinate 25 mg tablet extended release 24 hr 25 mg PO DAILY aspirin [Adult Aspirin Regimen] 81 mg tablet,delayed release (DR/EC) 81 mg PO DAILY cholecalciferol (vitamin D3) 50 mcg (2,000 unit) capsule 50 mcg PO DAILY clotrimazole-betamethasone 1-0.05 % cream 1 applic topical BID calcium carbonate [Calcium 600] 600 mg calcium (1,500 mg) tablet 600 mg PO BID levothyroxine [Synthroid] 75 mcg tablet 137 mcg PO DAILY dextrin 3 gram/3.5 gram powder 3 g PO DAILY qbprdsll-qky-eilo fum-folic ac 1 EACH tablet 1 ea PO BID Discharge Instructions Stand Alone Forms: Post-op Topical Cataract, Rosalba Mathis (DSU) Discharge Orders Discharge Orders: Discharge Order (Routine); Ordered 07/25/22 Ordered By: Demetrio Maya DS: Diagnosis Discharge Diagnosis (1) Cortical cataract of right eye: Status: Resolved (2) Nuclear sclerotic cataract of right eye: Status: Resolved
[2022-07-25 10:20] VITALS: BP 130/78; PULSE 54; RESP 16; TEMP 36.1; O2SAT 100
--- NOTE | 2022-07-25 10:20 | W.PM.OP ---
Date of service: 07/25/22 Time of Service: 10:20 Operative Note Operative Note DATE OF PROCEDURE: 07/25/22 PRE-OP DIAGNOSIS: Dense nuclear/cortical cataract, right eye Poorly dilating pupil, right eye Poor red reflex, right eye secondary to cataract POST-OP DIAGNOSIS: same PROCEDURE: Cataract extraction using phacoemulsification with intraocular lens implant, right eye Pupillary dilation and iris stabilization with pupil expansion device Capsular staining with VisionBlue SURGEON: Demetrio Maya ANESTHESIA TYPE: Local By Surgeon and MAC Refer to Anesthesia Record ESTIMATED BLOOD LOSS: 0 PATHOLOGY: none sent COMPLICATIONS: None Patient was transported to: same day Patient's condition: stable Implants: Mike Clareon [id number] Indications: Progressive decreased vision due to cataract, right eye Procedure Description: CATARACT SURGERY OPERATIVE REPORT PREOPERATIVE DIAGNOSIS: Dense nuclear/cortical cataract, right eye Poorly dilating pupil, right eye Poor red reflex, right eye POSTOPERATIVE DIAGNOSIS: Same OPERATION: Cataract extraction using phacoemulsification with posterior chamber intraocular lens implant, right eye. Pupillary dilation and iris stabilization with 6.25 mm pupillary expansion device, right eye Capsular staining with VisionBlue IOL: IOL System Support Administrator/Model: Mike Clareon [id number] IOL Power: + 25.0 diopters IOL Serial Number: [id number] Optic Diameter: 6.0mm Haptic/Overall Diameter: 13.0mm PHACO INFO: Mike Centurion Vision System with OZil and Active Fluidics Cumulative Dispersed Energy (CDE): 6.49 seconds SURGEON: Demetrio Maya MD, MARIA TERESA ANESTHESIA: Monitored Anesthesia Care (MAC), with local sub-tenon's anesthetic infiltration COMPLICATIONS: None SPECIMENS: None INDICATIONS FOR PROCEDURE: The patient is a 76-year-old lady with history of diminished visual acuity in her right eye. She is noted to have a dense nuclear/cortical cataract in the right eye with poorly dilating pupil and shallow anterior chamber. She is significantly symptomatic from decreased vision in the right eye that she desires cataract surgery and attempt to improve and maximize her vision. PROCEDURE: The correct surgical eye was identified and marked as the right eye and the pupil was dilated in the preoperative area using mydriatics and cycloplegics. The dilated pupil size was 3.0 mm. The patient elected to proceed without oral sedation. The patient was brought to the operating room where cardiopulmonary monitoring was instituted and surgical time-out was performed, confirming the correct operative eye and IOL power. Topical anesthesia was administered and ophthalmic povidone-iodine 5% was instilled into the conjunctival fornices. Lidocaine gel was applied to the cornea and the jeffy-ocular area was prepped with Betadine 10% solution and draped in the usual sterile fashion for intraocular surgery, including an aperture drape. A Tegaderm transparent film dressing was cut in half and used to cover the lashes and lid margins. Care was taken to sequester the lashes and lid margins under the Tegaderm dressing. A lid speculum was placed between the lids of the operative eye and the Iza-Beth operating microscope was maneuvered into position. Cristobal scissors were then used to make a conjunctival buttonhole approximately 6mm posterior to the limbus in the inferonasal quadrant. Blunt dissection was carried out to expose bare sclera, and a blunt-tipped sub-tenon?s anesthesia cannula was introduced and passed posteriorly along the globe where non-preserved plain lidocaine was injected into posterior sub-Tenon?s space. A sideport knife was used to make a paracentesis port inferiortemporally. Intraocular phenylephrine/lidocaine was injected into the anterior chamber. Very little additional pupillary dilation was achieved. The anterior chamber was then filled with viscoelastic. A keratome knife was used to construct a two--plane near-clear corneal tunnel extending 2.0mm into clear cornea in the superiortemporal position.. A 6.25 mm pupillary expansion ring was inserted into the pupillary space and engaged with a Kuglen hook. This was quite challenging due to the shallow anterior chamber. Viscoelastic was then removed from the anterior chamber and replaced with an air bubble. VisionBlue was then painted over the anterior lens capsule and allowed to sit for approximately 30 seconds, after which it was irrigated out with balanced salt solution. Viscoat was then used to fill the anterior chamber. A flap was raised on the anterior capsule and capsulorhexis forceps were used to complete a continuous curvilinear capsulorhexis of 5.0 mm. Balanced salt solution was then used to perform cortical cleaving hydrodissection and nuclear hydrodelineation until the lens could be freely rotated within the capsular bag. The lens nucleus was then disassembled and removed within the capsular bag and iris plane using phacoemulsification. Residual cortical material was removed using the I/A handpiece. The posterior capsule was carefully polished to remove as much residual lens epithelial cells as safely possible. The capsular bag was then inflated and the anterior chamber deepened with viscoelastic. The lens implant described above was inserted into the capsular bag using the Mike Autonome Injector. A Kuglen hook was used to dial the IOL into position. The pupil expansion device was then removed in the reverse order of its insertion. Residual viscoelastic was then removed first from posterior to the IOL, then from the anterior chamber using the I/A handpiece. The lens implant was noted to center nicely within the capsular bag. The incisions were stromally hydrated, and the anterior chamber was reformed using BSS. Then 0.5cc of moxifloxacin 1.0mg/ml were injected into the capsular bag and anterior chamber. The incisions were checked with a Weck spear and found to be secure. Several drops of ophthalmic povidone-iodine 5% were then applied to the eye followed by two drops of Imprimis combination prednisolone/moxifloxacin/nepafenac solution. The drapes were removed and a clear plastic protective eye shield was placed over the eye. The patient was then returned to Same Day Surgery in stable condition.
--- NOTE | 2022-07-25 10:32 | W.ANESPOSTOP ---
Postoperative Evaluation Date, Time and Location Date Performed: 07/25/22 Time Performed: 10:32 Patient Location: Day Surgery Unit Vital Signs Most Recent Imported Vital Signs: Most Recent Vital Signs Temp Pulse Resp BP Pulse Ox 36.1 C L 54 L 16 130/78 100 07/25/22 10:20 07/25/22 10:20 07/25/22 10:20 07/25/22 10:20 07/25/22 10:20 Pain Score Most Recent Pain Score: Most Recent Pain Score Pain Level 0 07/25/22 10:20 Assessment Mental Status: Awake (Alert & Oriented to Patient Baseline) Airway and Respiratory Function: Patent airway with normal (patient baseline) respiratory exam Cardiovascular Function: Hemodynamically Stable Hydration Status: Adequately Hydrated Nausea & Vomiting: No Nausea or Vomiting Pain: Pt. Denies Any Pain Peripheral Nerve Block: Patient did not receive a nerve block
== END 2022-07-25 10:44 | disposition home or self-care (01) ==
PROVIDERS: PCP Nurse Practitioner Family; Visit Provider Ophthalmology
PROC: (CPT 66982; principal; 2022-07-25 09:45)
DX: H25.11 Age-related nuclear cataract, right eye (principal); H26.8 Other specified cataract; H57.03 Miosis
CPT/HCPCS: 66982; V2632

== ENCOUNTER 2022-08-08 06:00 | Day surgery (SDC) | payer MEDICARE, SELFPAY ==
[2022-08-08 06:30] VITALS: BP 165/76; PULSE 72; RESP 18; TEMP 36.4; O2SAT 98
[2022-08-08] MEDS: Tropicam./Phenyleph. (1/2.5%) 5 ML BTL OS ×3 (06:42→06:57)
--- NOTE | 2022-08-08 07:02 | ANES.PREOP_ITS ---
General Info Date of Service Date Performed: 08/08/22 Height: 5 ft 3 in Weight: 100.4 kg Body Mass Index (BMI): 39.2 Surgical Procedure: Operation Date: 08/08/22 07:40 Proposed Procedure Side Surgeon p Cataract Extraction with IOL Implant Left Demetrio Maya MD Meds Allergies and Home Medications Allergies Allergy/AdvReac Type Severity Reaction Status Date / Time Penicillins Allergy Mild rash Verified 08/08/22 06:48 Home Medication Medication Instructions Recorded hydrochlorothiazide 25 mg tablet 25 mg PO DAILY 03/24/16 emofnpltwasn-bnacbqnl-bhal 1 ea PO BID 05/07/16 fumarate 7.5 mg-folic acid 400 mcg tablet metoprolol succinate 25 mg 25 mg PO DAILY 05/17/20 tablet,extended release 24 hr aspirin 81 mg tablet,delayed 81 mg PO DAILY 05/01/21 release (Adult Aspirin Regimen) calcium carbonate 600 mg calcium 600 mg PO BID 05/01/21 (1,500 mg) tablet (Calcium) cholecalciferol (vitamin D3) 50 50 mcg PO DAILY 05/01/21 mcg (2,000 unit) capsule clotrimazole-betamethasone 1 1 applic topical BID 05/01/21 %-0.05 % topical cream levothyroxine 75 mcg tablet 137 mcg PO DAILY 05/31/21 (Synthroid) magnesium malate, chelate 125 mg PO DAILY 05/23/22 tumeric 100 mg-emily 150 mg-olive 1 cap PO DAILY 05/23/22 50 mg-oreg 150 mg-caprylate capsule dextrin 3 gram/3.5 gram oral powder 3 g PO DAILY 07/22/22 Current Visit Medications: Current Medications Generic Name Dose Route Start Last Admin Trade Name Freq PRN Reason Stop Dose Admin Acetaminophen 1,000 mg 08/08/22 06:00 Acetaminophen 500 Mg Tab PO Q4H PRN PRN Miscellaneous Medication 0 ml 08/08/22 06:00 08/08/22 06:57 Tropicam./Phenyleph. (1/2.5%) 5 Ml Btl OS 1 drp DIRECTED [facility] Administration Miscellaneous Medication 0 ml 08/08/22 06:00 Prednisolone 1%, Moxifloxacin 0.5%, Nepafenac 0.1% 5ml Btl OS DIRECTED [facility] Tetracaine HCl 0 ml 08/08/22 06:00 Tetracaine 0.5% 4 Ml Btl OS DIRECTED [facility] Active Problems Active Problems: Problem Status Onset Code Atrial fibrillation I48.91 Nuclear sclerotic cataract of right eye H25.11 Cortical cataract of right eye H26.9 Nuclear age-related cataract, left eye H25.12 Posterior subcapsular age-related cataract of left eye H25.042 Medical History Medical History Cataract [place] HTN (hypertension) Hypothyroidism Left groin pain Surgical History Surgical History Colonoscopy - IV Sedation (05/07/16) History of cataract surgery Tobacco Smoking/Tobacco Use Status: Former Tobacco Use Alcohol Alcohol Intake: current Alcohol intake frequency: a few times a month Substance Use Substance use: Never Substance use type: does not use Vital Signs and Lab Results Vital Signs Most Recent Vital Signs in EMR: Most Recent Vital Signs Temp Pulse Resp BP Pulse Ox 36.4 C L 72 18 165/76 H 98 08/08/22 06:30 08/08/22 06:30 08/08/22 06:30 08/08/22 06:30 08/08/22 06:30 Lab Results Blood Type / Crossmatch: No Data to Display Complete Blood Count: White Blood Count 7.31 10^3/uL (4.4-10.8) 07/14/22 10:30 Red Blood Count 4.21 10^6/uL (3.93-5.22) 07/14/22 10:30 Hemoglobin 13.4 g/dL (11.2-15.7) 07/14/22 10:30 Hematocrit 39.8 % (36.0-46.0) 07/14/22 10:30 Platelet Count 237 10^3/uL (130-400) 07/14/22 10:30 Complete Metabolic Panel: Sodium 138 mmol/L (136-145) 07/14/22 10:30 Potassium 3.5 mmol/L (3.5-5.1) 07/14/22 10:30 Chloride 101 mmol/L (98-107) 07/14/22 10:30 Carbon Dioxide 28.6 mmol/L (21.0-32.0) 07/14/22 10:30 BUN 13 mg/dL (7-18) 07/14/22 10:30 Creatinine 0.8 mg/dL (0.55-1.02) 07/14/22 10:30 Est GFR (CKD-EPI 2020) 76.31 (mL/min/1.73m2) 07/14/22 10:30 Calcium 9.3 mg/dL (8.5-10.1) 07/14/22 10:30 Glucose 93 mg/dL (74-106) 07/14/22 10:30 Liver Function Panel: No Data to Display Coagulation Panel: No Data to Display Cardiac Panel: No Data to Display Arterial Blood Gas: No Data to Display Venous Blood Gas: No Data to Display Pancreas Panel: No Data to Display Thyroid Panel: No Data to Display Infectious Disease: No Data to Display Blood Cultures: No Data to Display Toxicology Panel: No Data to Display Imaging and Studies Imaging and Studies Study information below may be from another EMR and interpreted by another provider. Please see original notes in EMR for more complete details. EKG Summary: Conclusion Atrial fibrillation at a rate of 73. No acute T or ST changes Echocardiogram Summary: Conclusion Normal left ventricular wall thickness and chamber size. Estimated ejection fraction is 55 to 60%. Wall motion is normal Normal right ventricular size and systolic function Mildly dilated left atrium. Right atrium is normal in size Normal aortic valve without stenosis or regurgitation Moderate mitral annular calcification. Trace mitral regurgitation Normal tricuspid valve with trace to mild regurgitation, normal estimated right ventricular systolic pressure Normal pulmonic valve Mildly dilated ascending aorta Wall motion Anesthesia Assessment and Plan Anesthesia History Personal History: No History of Anesthesia Complications Family History: No Family History of Anesthesia Complications Exercise Tolerance Exercise Tolerance: Metabolic Equivalents<4 Cardiac & Pulmonary Exam Cardiac Exam: Normal S1/S2 Heart Sounds Pulmonary Exam: Clear Bilateral Breath Sounds Implantable Cardiac Device Does patient have a Pacemaker or an ICD?: No Airway Exam Known Difficult Airway: No Mallampati Class: 3 Mouth Opening: Normal (> 3cm) Thyromental Distance: Greater than 3 cm Neck Range of Motion: Full ROM Neck Circumference: Normal Teeth Condition: Removable Dentures/Plates Upper and Removable Dentures/Plates Lower ASA Classification ASA Score: ASA 3 Emergency Case?: No NPO Status NPO Status: NPO Clears >2 hours, Solids >8 hours Anesthesia Plan Resuscitation Status: Full Code Anesthesia Technique: MAC Anesthesia Airway Planned: Natural Airway Monitors Used: Standard Monitors
[2022-08-08 07:04] VITALS: BMI 39.2
[2022-08-08] MEDS: Lidocaine 1% Pres-Free 5 ML VIAL (07:45)
[2022-08-08] MEDS: Balanced Salt Soln.-PLUS 500 ML BAG (07:46)
[2022-08-08] MEDS: Povidone-Iodine Ophth 30 ML BTL (07:46)
[2022-08-08] MEDS: Phenylephrine/Lidocaine (15/10) MG/ML 1 ML VIAL (07:46)
[2022-08-08] MEDS: Trypan Blue 0.06% 0.5 ML SYR (07:47)
[2022-08-08] MEDS: Duovisc Viscoelastic System EACH 1 EACH (07:47)
[2022-08-08] MEDS: Tetracaine 0.5% 4 ML BTL OS (07:48)
[2022-08-08 08:12] VITALS: BP 138/69; PULSE 71; RESP 17; TEMP 36.5; O2SAT 99
--- NOTE | 2022-08-08 08:12 | ROE_ITS ---
Date of service: 08/08/22 Time of Service: 08:13 Operative Note Operative Note DATE OF PROCEDURE: 08/08/22 PRE-OP DIAGNOSIS: Dense nuclear/cortical cataract, left eye Poorly dilating pupil, left eye Poor red reflex, left eye POST-OP DIAGNOSIS: same PROCEDURE: Cataract extraction using phacoemulsification with intraocular lens implant, right eye Pupillary dilation and iris stabilization with pupillary expansion device Capsular staining with VisionBlue SURGEON: Demetrio Maya ANESTHESIA TYPE: Local By Surgeon and MAC Refer to Anesthesia Record ESTIMATED BLOOD LOSS: 0 PATHOLOGY: none sent COMPLICATIONS: None Patient was transported to: same day Patient's condition: stable Implants: Mike Clareon [id number] Indications: Progressive decreased vision due to cataract, right eye Procedure Description: CATARACT SURGERY OPERATIVE REPORT PREOPERATIVE DIAGNOSIS: Dense nuclear/cortical cataract, left eye Poorly dilating pupil, left eye Poor red reflex, left eye POSTOPERATIVE DIAGNOSIS: Same OPERATION: Cataract extraction using phacoemulsification with posterior chamber intraocular lens implant, left eye. Pupillary dilation and iris stabilization with 6.25 mm pupil expansion device Capsular staining with VisionBlue IOL: IOL Community Service Coordinator/Model: Mike Clareon [id number] IOL Power: + 25.0 diopters IOL Serial Number: [id number] Optic Diameter: 6.0mm Haptic/Overall Diameter: 13.0mm PHACO INFO: Mike Centurion Vision System with OZil and Active Fluidics Cumulative Dispersed Energy (CDE): 10.61 seconds SURGEON: Demetrio Maya MD, MARIA TERESA ANESTHESIA: Monitored Anesthesia Care (MAC), with local sub-tenon's anesthetic infiltration COMPLICATIONS: None SPECIMENS: None INDICATIONS FOR PROCEDURE: The patient is a 76-year-old lady with history of diminished visual acuity in both eyes secondary to development of dense bilateral nuclear/cortical cataract. She is a short axial length with shallow anterior chamber and poorly dilating pupils. She is significantly symptomatic from cataract that she desires cataract surgery and attempt to improve and maximize her vision. She has already undergone cataract surgery in the right eye and is doing well postoperatively. She now presents for cataract surgery in the left eye. PROCEDURE: The correct surgical eye was identified and marked as the left eye and the pupil was dilated in the preoperative area using mydriatics and cycloplegics. The dilated pupil size was 3.5 mm. The patient elected to proceed without oral sedation. The patient was brought to the operating room where cardiopulmonary monitoring was instituted and surgical time-out was performed, confirming the correct operative eye and IOL power. Topical anesthesia was administered and ophthalmic povidone-iodine 5% was instilled into the conjunctival fornices. Lidocaine gel was applied to the cornea and the jeffy-ocular area was prepped with Betadine 10% solution and draped in the usual sterile fashion for intraocular surgery, including an aperture drape. A Tegaderm transparent film dressing was cut in half and used to cover the lashes and lid margins. Care was taken to sequester the lashes and lid margins under the Tegaderm dressing. A lid speculum was placed between the lids of the operative eye and the Iza-Beth operating microscope was maneuvered into position. Cristobal scissors were then used to make a conjunctival buttonhole approximately 6mm posterior to the limbus in the inferonasal quadrant. Blunt dissection was carried out to expose bare sclera, and a blunt-tipped sub-tenon?s anesthesia cannula was introduced and passed posteriorly along the globe where non- preserved plain lidocaine was injected into posterior sub-Tenon?s space. A sideport knife was used to make a paracentesis port superiorly. Intraocular phenylephrine/lidocaine was injected into the anterior chamber. No additional pupillary dilation was achieved. The anterior chamber was then filled with viscoelastic. Provisc was used initially. A keratome knife was used to co nstruct a two--plane near-clear corneal tunnel extending 2.0mm into clear cornea in the temporal position. A 6.25 mm pupillary expansion device was then inserted into the pupillary space and engaged with the Kuglen hook. The irrigation/aspiration handpiece was then used to remove the viscoelastic and the anterior chamber. VisionBlue was then injected into the anterior chamber and allowed to sit for 12 to 15 seconds for capsular staining.. A flap was raised on the anterior capsule and capsulorhexis forceps were used to complete a continuous curvilinear capsulorhexis of 5.0 mm. Balanced salt solution was then used to perform cortical cleaving hydrodissection and nuclear hydrodelineation until the lens could be freely rotated within the capsular bag. The lens nucleus was then disassembled and removed within the capsular bag and iris plane using phacoemulsification. Residual cortical material was removed using the I/A handpiece. The posterior capsule was carefully polished to remove as much residual lens epithelial cells as safely possible. The capsular bag was then inflated and the anterior chamber deepened with viscoelastic. The lens implant described above was inserted into the capsular bag using the Mike Autonome Injector. A Kuglen hook was used to dial the IOL into position. The pupil expansion device was then removed in the reverse order of its insertion. Residual viscoelastic was then removed first from posterior to the IOL, then from the anterior chamber using the I/A handpiece. The lens implant was noted to center nicely within the capsular bag. The incisions were stromally hydrated, and the anterior chamber was reformed using BSS. Then 0.5cc of moxifloxacin 1.0mg/ml were injected into the capsular bag and anterior chamber. The incisions were checked with a Weck spear and found to be secure. Several drops of ophthalmic povidone-iodine 5% were then applied to the eye followed by two drops of Imprimis combination prednisolone/moxifloxacin/nepafenac solution. The drapes were removed and a clear plastic protective eye shield was placed over the eye. The patient was then returned to Same Day Surgery in stable condition.
--- NOTE | 2022-08-08 08:12 | W.PM.DSUDISC ---
Date of service: 08/08/22 Time of Service: 08:12 Discharge Plan Disposition Patient Disposition: Home Discharge Details Attending Provider: Demetrio Maya Primary Care Provider: Siobhan Arriaza Home Meds and New Rx's Prescriptions: No Action fzxwtqj-djxa-pajsb-oreg-capryl 100 mg-150 mg- 50 mg-150 mg capsule 1 cap PO DAILY magnesium malate, chelate 125 mg magnesium capsule 125 mg PO DAILY hydrochlorothiazide 25 MG tablet 25 mg PO DAILY metoprolol succinate 25 mg tablet extended release 24 hr 25 mg PO DAILY aspirin [Adult Aspirin Regimen] 81 mg tablet,delayed release (DR/EC) 81 mg PO DAILY cholecalciferol (vitamin D3) 50 mcg (2,000 unit) capsule 50 mcg PO DAILY clotrimazole-betamethasone 1-0.05 % cream 1 applic topical BID calcium carbonate [Calcium 600] 600 mg calcium (1,500 mg) tablet 600 mg PO BID levothyroxine [Synthroid] 75 mcg tablet 137 mcg PO DAILY dextrin 3 gram/3.5 gram powder 3 g PO DAILY wcnqiuzy-iou-rvsr fum-folic ac 1 EACH tablet 1 ea PO BID Discharge Instructions Stand Alone Forms: Post-op Topical Cataract, Rosalba Mathis (DSU) Discharge Orders Discharge Orders: Discharge Order (Routine); Ordered 08/08/22 Ordered By: Demetrio Maya DS: Diagnosis Discharge Diagnosis (1) Nuclear age-related cataract, left eye: Status: Resolved (2) Posterior subcapsular age-related cataract of left eye: Status: Resolved
--- NOTE | 2022-08-08 08:33 | W.ANESPOSTOP ---
Postoperative Evaluation Date, Time and Location Date Performed: 08/08/22 Time Performed: 08:12 Patient Location: Day Surgery Unit Vital Signs Most Recent Imported Vital Signs: Most Recent Vital Signs Temp Pulse Resp BP Pulse Ox 36.5 C 71 17 138/69 99 08/08/22 08:12 08/08/22 08:12 08/08/22 08:12 08/08/22 08:12 08/08/22 08:12 Pain Score Most Recent Pain Score: Most Recent Pain Score Pain Level 0 08/08/22 08:12 Assessment Mental Status: Awake (Alert & Oriented to Patient Baseline) Airway and Respiratory Function: Patent airway with normal (patient baseline) respiratory exam Cardiovascular Function: Hemodynamically Stable Hydration Status: Adequately Hydrated Nausea & Vomiting: No Nausea or Vomiting Pain: Pt. Denies Any Pain Peripheral Nerve Block: Patient did not receive a nerve block
== END 2022-08-08 08:35 | disposition home or self-care (01) ==
LOC: SUR 08:48
PROVIDERS: PCP Nurse Practitioner Family; Visit Provider Ophthalmology
PROC: (CPT 66982; principal; 2022-08-08 07:30)
DX: H25.12 Age-related nuclear cataract, left eye (principal); H25.042 Posterior subcapsular polar age-related cataract, left eye; H57.09 Other anomalies of pupillary function; H57.89 Other specified disorders of eye and adnexa; I10 Essential (primary) hypertension; I48.91 Unspecified atrial fibrillation; Z98.41 Cataract extraction status, right eye
CPT/HCPCS: 66982; V2632

== ENCOUNTER 2022-08-25 00:04 | Outpatient (CLI) | payer MEDICARE, SELFPAY ==
--- NOTE | 2022-08-25 | DI.MAMMO_ITS ---
Exam(s) MAMMO SCREENING EXAM: MAMMO SCREENING CLINICAL HISTORY: SCREENING MAMMO FOR BREAST CANCER Z12.31 TECHNIQUE: Bilateral full field digital CC and MLO mammographic images were obtained with 3D tomosyn thesis and utilizing computer aided detection (CAD). COMPARISON: Available for comparison. FINDINGS: Masses/Architectural Distortion: None seen. Microcalcifications: No suspicious pleomorphic-type are seen. Skin Thickening/Nipple Retraction: None. IMPRESSION: 1. No significant interval change with no specific features of malignancy noted. 2. Unless there is more urgent need, screening mammography is recommended, as per [employer] guidelines. BI-RADS Category 1 - Negative Breast Density - Category B - Scattered areas of fibroglandular density Breast density category C or D implies that the patient has dense breast tissue. Dense breast tissue is very common and is not abnormal but dense breast tissue can make it harder to find cancer on a ma mmogram. Also, dense breast tissue may increase their breast cancer risk. This information about the result of the mammogram report was provided to the patient to raise their awareness. Use this report when you speak with the patient about their risks for breast cancer, which includes their family hist ory. At that time, you may recommend for more screening tests (Ultrasound or MRI) as they might be us eful based on their risk. A negative radiographic report should not delay biopsy if a dominant or clinically suspicious mass is present. Up to ten percent of cancers are not identified on mammography. A negative report may reinforce clinical impression. Adenosis and dense breasts may obscure an underlying neoplasm. False positive reports average 6 to 10%. Patient will receive a letter notifying them of these results.
== END 2022-08-25 00:24 ==
LOC: DI 00:05
PROVIDERS: PCP Nurse Practitioner Family; Visit Provider Nurse Practitioner Family
DX: Z12.31 Encounter for screening mammogram for malignant neoplasm of breast (principal)
CPT/HCPCS: 77063; 77067

== ENCOUNTER → 2022-09-26 07:49 | Outpatient (BNVA) | payer MEDICARE, SELFPAY | PROVIDERS: PCP Nurse Practitioner Family; Referring Provider Nurse Practitioner Family; Visit Provider Student in an Organized Health Care Education/Training Program | DX: M16.12 Unilateral primary osteoarthritis, left hip (principal) | CPT/HCPCS: 99213 ==

== ENCOUNTER 2023-01-15 13:18 | Outpatient (CLI) | payer MEDICARE, SELFPAY ==
--- NOTE | 2023-01-15 09:45 | DI.RAD_ITS ---
Exam(s) XR KNEE RT 4V AP,LAT,VIOLA,PAT EXAM: XR KNEE RT 4V AP,LAT,VIOLA,PAT CLINICAL HISTORY: knee pain. TECHNIQUE: 2D digital imaging was performed of the right knee. Four views obtained. Merchant, AP, la teral and PA tunnel views were obtained. COMPARISON: No exams were available for comparison FINDINGS: BONES: No acute fracture is present. No bony destructive lesion is seen. JOINTS: Wpzx-cq-ttmxhawt degenerative changes are present with moderate joint space narrowing in the medial femoral tibial joint and periarticular spurring involving all 3 joint compartments. No joint effusion is seen. SOFT TISSUE: Normal. IMPRESSION: Degenerative changes of the right knee. DATA REPOSITORY: RADIATION DOSE DELIVERED:
--- NOTE | 2023-01-15 09:45 | DI.RAD_ITS ---
Exam(s) XR KNEE LT 4V AP,LAT,VIOLA,PAT EXAM: XR KNEE LT 4V AP,LAT,VIOLA,PAT CLINICAL HISTORY: knee pain. TECHNIQUE: 2D digital imaging was performed of the left knee. Four images were obtained. Merchant, AP, lateral and PA tunnel views were obtained. COMPARISON: None. FINDINGS: BONES: No acute fracture is present. No bony destructive lesion is seen. JOINTS: There is narrowing of the femoral tibial joint. No joint effusion is seen. No loose body. SOFT TISSUE: Normal. IMPRESSION: Mild joint space narrowing. DATA REPOSITORY: RADIATION DOSE DELIVERED:
== END 2023-01-15 13:19 | disposition home or self-care (01) ==
LOC: DIORS 13:18
PROVIDERS: PCP Nurse Practitioner Family; Referring Provider Nurse Practitioner Family
DX: M25.561 Pain in right knee (principal); M25.562 Pain in left knee
CPT/HCPCS: 20610; 73564; J1040

== ENCOUNTER → 2023-01-22 03:40 | Outpatient (CLI) | payer MEDICARE, SELFPAY ==
--- NOTE | 2023-01-22 14:36 | DI.RAD_ITS ---
Exam(s) RF JOINT INJECTION FLUORO GUID EXAM: RF JOINT INJECTION FLUORO GUID CLINICAL HISTORY: L HIP INJ UNDER FLUORO,OA LT HIP, M16.12 TECHNIQUE: 2D and realtime digital imaging was performed. CONTRAST MATERIAL: Refer to procedure report. COMPARISON: No exams were available for comparison FINDINGS: Fluoroscopy was provided for Dr. Nunn during the performance of a left hip injection. Please re joyce to the procedure report for complete details. Ka,r=0.41 mGy IMPRESSION: RADIATION DOSE DELIVERED:
[2023-01-22] MEDS: methylPREDNISolone ACETATE 80 MG/ML VIAL IM (14:52)
[2023-01-22] MEDS: Bupivacaine 0.5% Pres-Free 10 ML VIAL 5 ML IJ (14:53)
[2023-01-22] MEDS: Omnipaque 300 MG/ML 10 ML BTL IJ (14:54)
--- NOTE | 2023-01-23 07:49 | W.PROCNOTE ---
Date of service: 01/22/23 Time of Service: 14:30 Procedure Note Date of procedure: 01/22/23 Procedure: Left Hip Injection with Fluoroscopic Guidance Surgeon/Proceduralist/Physician: Sonny Nunn Procedure Diagnosis: Left Hip Osteoarthritis Procedure Indications: Emily has had persistent pain of the LEFT hip and groin. Noninvasive measures have been tried. To serve as both diagnostic and therapeutic, an injection under fluoroscopy was recommended. I had discussed the risks of the procedure and the patient elected to proceed. Procedure Description: Emily was greeted in the flouroscopy room. The correct side was identified and the consent was reviewed with the patient and signed. The patient was then placed in the supine position on the fluoroscopy table. The LEFT hip was then prepped with Chloraprep. The anterolateral injection starting point was identiifed by bony landmarks and fluoroscopy. The skin and soft tissue in the tract of the injection was anesthetized with 1% Lidocaine. A spinal needle was then inserted deep into the hip joint at the level of the lateral femoral neck under fluoroscopic guidance. A small amount of Omnipaque solution was injected to confirm intraarticular placement. Once confirmed, the hip was injected with 5cc of 0.5% Bupivicaine and 80mg of Depo-Medrol. A bandaid was placed on the injection site. The patient tolerated the procedure well and noted improvement in pre-injection pain.
== END ==
PROVIDERS: PCP Nurse Practitioner Family; Visit Provider Student in an Organized Health Care Education/Training Program
DX: M16.12 Unilateral primary osteoarthritis, left hip (principal); M25.552 Pain in left hip
CPT/HCPCS: 20610; 77002; J1040

== ENCOUNTER 2023-05-13 16:29 | Outpatient (REF) | payer MEDICARE, SELFPAY ==
[2023-05-13 21:37] LABS: ESR 8 mm/hr (0-30)
[2023-05-13 23:05] LABS: BUN 19 mg/dL (7-18); CREATININE 0.8 mg/dL (0.55-1.02); Calcium 9.4 mg/dL (8.5-10.1); Chloride 99 mmol/L (98-107); Estimated GFR 75.84 (mL/min/1.73m2); FREE T4 1.29 ng/dL (0.76-1.46); Glucose 87 mg/dL (74-106); Potassium 3.6 mmol/L (3.5-5.1); Sodium 138 mmol/L (136-145); TSH 2.08 uIU/mL (0.36-3.74)
[2023-05-13 23:18] LABS: HDL Cholesterol 70 mg/dL (40-60); LDL CHOLESTEROL 92 mg/dL (<100)
[2023-05-14 17:32] LABS: Rheumatoid Factor <8.6 IU/mL (<12.0)
[2023-05-16 13:27] LABS: c-ANCA Negative (Negative); p-ANCA Negative (Negative)
[2023-05-19 15:56] LABS: ANA Interpretation Positive (Negative)
== END 2023-05-13 16:30 | disposition home or self-care (01) ==
LOC: NCHCN 16:29
PROVIDERS: PCP Nurse Practitioner Family; Visit Provider Nurse Practitioner Family
DX: E03.9 Hypothyroidism, unspecified (principal); M25.50 Pain in unspecified joint
CPT/HCPCS: 80048; 83721; 85652; 83718; 84439; 84443; 86038; 86255; 86431

== ENCOUNTER → 2023-05-15 01:50 | Outpatient (CLI) | payer MEDICARE, SELFPAY ==
--- NOTE | 2023-05-15 10:08 | DI.RAD_ITS ---
Exam(s) XR LUMBAR SPINE COMPLETE EXAM: XR LUMBAR SPINE COMPLETE CLINICAL HISTORY: LOW BACK PAIN, M54.50. TECHNIQUE: 2D digital imaging was performed. Five views. COMPARISON: No exams were available for comparison FINDINGS: BONES: No fracture or destructive lesion. Vertebral body heights are maintained. Severe facet hypert rophy identified, greatest at L4-5.. DISKS: Mild narrowing L3-4 through L5-S1 disc spaces prominent endplate osteophytes in the lower thor acic and lumbar spine, greater on the right side. ALIGNMENT: Slight degenerative spondylolisthesis at L3-4, L4-5 and L5-S1. No significant scoliosis. SOFT TISSUE: Nor aorta heavily calcified. Normal diameter. IMPRESSION: Severe facet joint degenerative changes. Prominent endplate osteophytes. DATA REPOSITORY: RADIATION DOSE DELIVERED:
== END ==
PROVIDERS: PCP Nurse Practitioner Family; Visit Provider Nurse Practitioner Family
DX: M46.96 Unspecified inflammatory spondylopathy, lumbar region (principal)
CPT/HCPCS: 72110

== ENCOUNTER 2023-05-22 08:40 | Outpatient (CLI) | payer MEDICARE, SELFPAY ==
--- NOTE | 2023-05-22 08:30 | RT.EKG_ITS ---
APPROVED REPORT Exam: Resting ECG Reason for Exam: follow up Patient Location: O HR:85 bpm ECG Measurements Heart Rate 85 AXIS [place] [id number] P [id number] QRSd 78 QRS 68 QT 475 T 34 QTc 565 Conclusion Atrial fibrillation...V-rate 62-114, irreg A-activity Borderline low voltage, extremity leads...all extremity leads <0.6mV Anteroseptal infarct, old...Q >40mS, V1-V2 Borderline ST depression, anterolateral leads...ST <-0.07mV, I aVL V2-V6 Prolonged QT interval...QTc >500mS Baseline wander in lead(s) V3,V4,V5,V6 I have reviewed and interpreted ECG and agree with software generated interpretation.
== END 2023-05-22 08:41 | disposition home or self-care (01) ==
LOC: DI.CARD 08:40
PROVIDERS: PCP Nurse Practitioner Family; Visit Provider Internal Medicine Interventional Cardiology
DX: I48.91 Unspecified atrial fibrillation (principal)
CPT/HCPCS: 93010

== ENCOUNTER → 2023-05-22 08:49 | Outpatient (BNVA) | payer MEDICARE, SELFPAY | PROVIDERS: PCP Nurse Practitioner Family; Visit Provider Internal Medicine Interventional Cardiology | DX: I48.11 Longstanding persistent atrial fibrillation (principal); I10 Essential (primary) hypertension; R06.09 Other forms of dyspnea; M54.50 Low back pain, unspecified | CPT/HCPCS: 93005; 99213 ==

== ENCOUNTER → 2023-08-14 00:53 | Outpatient (CLI) | payer MEDICARE, SELFPAY ==
--- NOTE | 2023-08-14 14:30 | DI.US_ITS ---
APPROVED REPORT EXAM: Comprehensive 2D, Doppler, and color-flow Echocardiogram Patient Location: Out-Patient Crime Specialist: Tesha Guthrie RDCS (AE) Indications: Exertional dyspnea, atrial fibrillation, CHF Other Information Study Quality: Adequate. Technically limited study due to body habitus. Conclusion Normal left ventricular wall thickness and chamber size EF is 55-60% . Wall motion is normal. Patie nt is in atrial fibrillation with beat to beat variation Normal right ventricualr size and function Left atrium is moderately dilated. Right atrium is mildly dilated Mild aortic vavle sclerosi Mild mitral annular calcification Trace to mild mitral and tricuspid regurgitation RVSP is 30 mmHg Wall motion Left Ventricle The left ventricle is normal size. The left ventricular systolic function is normal. The left ventric ular ejection fraction is within the normal range. There is normal left ventricular wall thickness. T here is normal LV segmental wall motion. There is no ventricular septal defect visualized. LVEF is 56 %. Right Ventricle The right ventricle is normal size. The right ventricular systolic function is normal. Atria The left atrium is moderately dilated The right atrium size is mildly dilated The interatrial septum is intact with no evidence for an atrial septal defect. Aortic Valve The aortic valve is mildly sclerotic and trileaflet Aortic valve is trileaflet. There is no aortic v alvular stenosis. No aortic regurgitation is present. Mitral Valve Mild mitral annular calcification. No evidence of mitral valve stenosis. Trace to mild mitral regurgi tation. Tricuspid Valve The tricuspid valve is normal in structure. There is no tricuspid valve stenosis. Trace tricuspid reg urgitation. The RVSP is 30.0 mmHg. Pulmonic Valve The pulmonary valve is normal in structure. There is no pulmonic valvular stenosis. Trace pulmonic re gurgitation. Great Vessels The aortic root is normal in size. The ascending aorta is normal in size. IVC is normal in size and c ollapses >50% with inspiration. Pericardium There is no pericardial effusion. 2D Dimensions IVSD d PLAX 1.10 cm F: 0.6-1.0 Ao Root d 2.56 cm F: 2.7 - 3.3 LVPW d PLAX 1.10 cm F: 0.6 - 1.0 Ao Asc Diam d 2.84 cm F: 2.3 - 3.1 LVID d PLAX 4.38 cm F: 3.8 - 5.2 LVDs 3.08 cm F: 2.2 - 3.5 LV EF Teichholz 57.1 % FS 29.74 % LV EDV (Teich) 86.9 mL LV ESV (Teich) 37.3 mL M-Mode TAPSE 2.30 cm (M/F) >1.7 Auto EF LV EDV A4C 91.6 mL LV EDV A2C 122.6 mL LV EDV BP 103.7 mL LV ESV A4C 38.0 mL LV ESV A2C 53.1 mL LV ESV BP 45.3 mL LVEF(%) A4C 58.6 % LVEF(%) A2C 56.7 % LVEF(%) BP 56.3 % LV SV A4C 53.7 ml LV SV A2C 69.5 ml LV SV BP 58.4 ml LV CO A4C 4.1 L/min LV CO A2C 4.7 L/min LV CO BP 4.4 L/min HR A4C 77.06 BPM HR A2C 67.30 BPM LV EDV Index (BP) LA Volume LA Length A4C 6.5 cm LA Length A2C 6.2 cm LA Area A4C s 23.22 cm2 LA Area A2C s 22.31 cm2 LA Vol A4C A-L 70.37 mL LA Vol A2C A-L 68.39 mL LA Vol Biplane A-L 71.2 mL LA Vol/BSA A4C A-L LA Vol/BSA A2C A-L LA Vol/BSA BP A-L 34.9 mL/m2 LA Vol A4C MOD 65.4 mL LA Vol A2C MOD 65.0 mL LA Vol BP MOD 66.7 mL RA Volume RA Area A4C 17.7 cm2 RA ESV A4C (A-L) 48.1mL RA Vol/BSA A4C A-L RA Length A4C 5.5 cm RA ESV A4C (MOD) 46.0mL LV Diastology MV E' medial 0.108 (>0.07 m/s) MV E Vmax 0.78 (0.4-1.3 m/s) MV E/E' MED 7.23 (<14) MV A Vmax 1.10 (0.4-1.3 m/s) MV E' lateral 0.103 (>0.1 m/s) E/A Ratio 0.7 MV E/E' LAT 7.60 (<14) MV E' Average 0.105 m/s MV E/E'(average) 7.41 Aortic Valve AoV Vmax 1.72 m/s LVOT Vmax 1.04 m/s AoV Peak Grad 11.8 mmHg LVOT Peak Grad 4.3 mmHg AoV Area (Vmax) 1.75 cm2 LVOT VTI 0.252 m AoV VTI 0.375 m LVOT Mean Grad 2.7 mmHg AoV Mean Winston. 1.17 m/s LVOT SV 72.74 mL AoV Mean Grad 6.3 mmHg LVOT Diam s 1.90 cm AoV Area (VTI) 1.94 cm2 Velocity Ratio 0.60 Mitral Valve MV DT 194 (160-240 msec) MV Vmax TIPS 1.19 m/s MV Mean Grad 1.6 (<2mmHg) MV VTI 0.332 m Pulmonary Valve PV Vmax 0.98 (0.5-1.5 m/s) RVOT Vmax 0.97 m/s PV Peak Grad 3.8 mmHg RVOT Peak Gr. 3.8 mmHg PV Mean Winston 0.65 m/s RVOT VTI 0.207 m PV Mean Grad 2.0 mmHg RVOT Mean Gr. 2.0 mmHg Tricuspid Valve RA Pressure 3.00 mmHg TR Vmax 2.60 m/s TV S' 0.12 m/s TR Peak Grad 27.0 mmHg RVSP (TR) 30.0 mmHg
== END ==
PROVIDERS: PCP Nurse Practitioner Family; Visit Provider Internal Medicine Interventional Cardiology
DX: I50.9 Heart failure, unspecified (principal)
CPT/HCPCS: 93306

== ENCOUNTER → 2023-08-21 08:51 | Outpatient (BNVA) | payer MEDICARE, SELFPAY | PROVIDERS: PCP Nurse Practitioner Family; Referring Provider Nurse Practitioner Family; Visit Provider Internal Medicine Cardiovascular Disease | DX: I48.11 Longstanding persistent atrial fibrillation (principal); I10 Essential (primary) hypertension | CPT/HCPCS: 99213 ==

== ENCOUNTER → 2023-08-27 04:57 | Outpatient (CLI) | payer MEDICARE, SELFPAY ==
--- NOTE | 2023-08-27 11:50 | DI.MAMMO_ITS ---
Exam(s) MAMMO SCREENING EXAM: MAMMO SCREENING CLINICAL HISTORY: Z12.31 Encounter for screening mammogram for malabigail neop of breast TECHNIQUE: Bilateral full field digital CC and MLO mammographic images were obtained with 3D tomosyn thesis and utilizing computer aided detection (CAD). COMPARISON: Available for comparison. FINDINGS: Masses/Architectural Distortion: There is stable well-circumscribed nodules in both breasts. No new nodules or areas of architectural distortion are present. Microcalcifications: No suspicious pleomorphic-type are seen. Stable benign type calcifications are s een in the breasts bilaterally. Skin Thickening/Nipple Retraction: None. IMPRESSION: 1. No significant interval change with no specific features of malignancy noted. 2. Unless there is more urgent need, screening mammography is recommended, as per [employer] guidelines. BI-RADS Category 2 - Benign Findings Breast Density - Category B - Scattered areas of fibroglandular density Breast density category C or D implies that the patient has dense breast tissue. Dense breast tissue is very common and is not abnormal but dense breast tissue can make it harder to find cancer on a ma mmogram. Also, dense breast tissue may increase their breast cancer risk. This information about the result of the mammogram report was provided to the patient to raise their awareness. Use this report when you speak with the patient about their risks for breast cancer, which includes their family hist ory. At that time, you may recommend for more screening tests (Ultrasound or MRI) as they might be us eful based on their risk. A negative radiographic report should not delay biopsy if a dominant or clinically suspicious mass is present. Up to ten percent of cancers are not identified on mammography. A negative report may reinforce clinical impression. Adenosis and dense breasts may obscure an underlying neoplasm. False positive reports average 6 to 10%. Patient will receive a letter notifying them of these results.
== END ==
PROVIDERS: PCP Nurse Practitioner Family; Visit Provider Nurse Practitioner Family
DX: Z12.31 Encounter for screening mammogram for malignant neoplasm of breast (principal); R92.323 Mammographic fibroglandular density, bilateral breasts
CPT/HCPCS: 77063; 77067

== ENCOUNTER 2024-05-23 15:47 | Outpatient (CLI) | payer MEDICARE, SELFPAY ==
--- NOTE | 2024-05-23 09:15 | DI.RAD_ITS ---
Exam(s) XR HIP LT COMPLETE AP PELVIS EXAM: XR HIP LT COMPLETE AP PELVIS CLINICAL HISTORY: left hip DJD. TECHNIQUE: 2D digital imaging was performed of the left hip. Two views were obtained. AP pelvis an d lateral left hip views were obtained. COMPARISON: CR XR HIP LT COMPLETE AP PELVIS from 07/18/2022 FINDINGS: BONES: No acute fracture is present. No bony destructive lesion is seen. JOINTS: No dislocation present. There are marked degenerative changes seen in the left hip including joint space lost and osteophytes on the acetabulum and femoral head. There is shown mild progression of the degenerative changes since the prior examination. SOFT TISSUE: Normal. IMPRESSION: Marked degenerative changes seen in the left hip. DATA REPOSITORY: RADIATION DOSE DELIVERED:
== END 2024-05-23 15:48 | disposition home or self-care (01) ==
LOC: DIORS 15:47
PROVIDERS: PCP Family Medicine; Referring Provider Family Medicine; Visit Provider Student in an Organized Health Care Education/Training Program
DX: M16.12 Unilateral primary osteoarthritis, left hip (principal); M17.11 Unilateral primary osteoarthritis, right knee
CPT/HCPCS: 20610; 99213; J1010; 73502

== ENCOUNTER → 2024-06-16 09:39 | Outpatient (BNVA) | payer MEDICARE, SELFPAY | PROVIDERS: PCP Family Medicine; Referring Provider Family Medicine; Visit Provider Student in an Organized Health Care Education/Training Program | DX: M16.12 Unilateral primary osteoarthritis, left hip (principal) | CPT/HCPCS: 99214 ==

== ENCOUNTER 2024-08-12 00:56 | Outpatient (CLI) | payer MEDICARE, SELFPAY ==
[2024-08-12 11:37] LABS: HCT 40.5 % (36.0-46.0); HGB 13.8 g/dL (11.2-15.7); MCH 32.5 pg (27.0-33.0); MCHC 34.1 % (32.0-36.0); MCV 96 fL (80-95); MPV 9.8 fL (8.0-11.0); Platelet Count 225 10^3/uL (130-400); RBC 4.24 10^6/uL (3.93-5.22); RDW 13.9 % (11.7-14.6); RDW-SD 49.1 fL
[2024-08-12 11:52] LABS: Hemoglobin A1C 5.5 % (<5.7)
[2024-08-12 12:11] LABS: Anion Gap 4.7 mmol/L (3-11); BUN 20 mg/dL (7-18); CO2 33.3 mmol/L (21.0-32.0); CREATININE 0.7 mg/dL (0.55-1.02); Calcium 9.8 mg/dL (8.5-10.1); Chloride 95 mmol/L (98-107); Estimated GFR 88.47 (mL/min/1.73m2); Glucose 98 mg/dL (74-106); Potassium 3.7 mmol/L (3.5-5.1); Sodium 133 mmol/L (136-145)
[2024-08-12 12:21] LABS: Calculated LDL 83 mg/dL (<100); Cholesterol 181 mg/dL (<200); HDL Cholesterol 79 mg/dL (>or=50); Magnesium 2.1 mg/dL (1.8-2.4); TSH (W/Ref FT4) 3.78 uIU/mL (0.36-3.74); Triglyceride 96 mg/dL (<150)
[2024-08-12 12:37] LABS: FREE T4 1.42 ng/dL (0.76-1.46)
== END 2024-08-12 00:57 | disposition home or self-care (01) ==
LOC: LBO 00:56
PROVIDERS: PCP Family Medicine; Visit Provider Student in an Organized Health Care Education/Training Program
DX: Z83.3 Family history of diabetes mellitus (principal); I48.91 Unspecified atrial fibrillation; E78.5 Hyperlipidemia, unspecified; Z00.00 Encounter for general adult medical examination without abnormal findings
CPT/HCPCS: 36415; 80048; 80061; 85027; 83036; 83735; 84439; 84443

== ENCOUNTER 2024-08-19 08:23 | Outpatient (CLI) | payer MEDICARE, SELFPAY ==
--- NOTE | 2024-08-19 08:15 | RT.EKG_ITS ---
APPROVED REPORT Exam: Resting ECG Reason for Exam: Preop Patient Location: O HR:69 bpm ECG Measurements Heart Rate 69 AXIS SD [id number] P [id number] QRSd 93 QRS 77 QT 390 T 35 QTc 418 Conclusion Atrial fibrillation...V-rate 61- 82, irreg A-activity Low voltage, precordial leads...precordial leads <1.0mV
== END 2024-08-19 08:24 | disposition home or self-care (01) ==
LOC: DI.CARD 08:23
PROVIDERS: PCP Family Medicine; Visit Provider Internal Medicine Cardiovascular Disease
DX: I48.11 Longstanding persistent atrial fibrillation (principal)
CPT/HCPCS: 93010

== ENCOUNTER → 2024-08-19 08:47 | Outpatient (BNVA) | payer MEDICARE, SELFPAY | PROVIDERS: PCP Family Medicine; Visit Provider Internal Medicine Cardiovascular Disease | DX: M16.12 Unilateral primary osteoarthritis, left hip (principal); I48.11 Longstanding persistent atrial fibrillation | CPT/HCPCS: 93005; 99214 ==

== ENCOUNTER 2024-08-24 08:08 | Day surgery (SDC) | payer MEDICARE, SELFPAY ==
[2024-08-24] VITALS (17 sets, daily range): BP systolic 127–179; BP diastolic 40–78; PULSE 45–71; RESP 13–31; TEMP 36–36.5; O2SAT 93–100; BMI 40.1
--- NOTE | 2024-08-24 07:22 | PDOC.DSDIS_ITS ---
Date of service: 08/24/24 Discharge Plan Disposition Patient Disposition: Home Condition: Good Discharge Details Reason For Visit: L THR Attending Provider: Sonny Nunn Primary Care Provider: Ellie Gray V Home Meds and New Rx's Prescriptions: New acetaminophen 500 mg tablet 1,000 mg PO TID Qty: 90 3RF aspirin 81 mg tablet,delayed release (DR/EC) 81 mg PO BID Qty: 60 0RF celecoxib 200 mg capsule 200 mg PO BID Qty: 60 0RF dexamethasone 4 mg tablet 4 mg PO DAILY Qty: 2 0RF docusate sodium 100 mg capsule 100 mg PO BID PRNQty: 28 0RF pantoprazole 40 mg tablet,delayed release (DR/EC) 40 mg PO DAILY Qty: 14 0RF oxycodone 5 mg tablet 5 mg PO Q4H MDD 6 tabs PRN (Reason: pain) Qty: 12 0RF Continued metoprolol succinate 25 mg tablet extended release 24 hr 50 mg PO DAILY Qty: 180 3RF rojpocow-urqh-fuygh-oreg-capry 100 mg-150 mg- 50 mg-150 mg capsule 1 cap PO DAILY magnesium chelate, malate 125 mg magnesium capsule 125 mg PO DAILY furosemide 20 mg tablet 20 mg PO DAILY hydrochlorothiazide 25 MG tablet 25 mg PO DAILY cholecalciferol (vitamin D3) 50 mcg (2,000 unit) capsule 50 mcg PO DAILY clotrimazole-betamethasone 1-0.05 % cream 1 applic topical BID calcium carbonate [Calcium 600] 600 mg calcium (1,500 mg) tablet 600 mg PO BID levothyroxine [Synthroid] 75 mcg tablet 137 mcg PO DAILY dextrin 3 gram/3.5 gram powder 3 g PO DAILY yfzplxpj-shy-dobp fum-folic ac 1 EACH tablet 1 ea PO BID Discontinued meloxicam 15 mg tablet 15 mg PO DAILY aspirin [Adult Aspirin Regimen] 81 mg tablet,delayed release (DR/EC) 81 mg PO DAILY Discharge Instructions Additional Instructions: Total Hip Discharge Instructions Activity: The most important activity is to walk. You should try to take short walks a few times a day. You have no restrictions on movement or positioning, but do not try to force what you do. You will find some stiffness and weakness with hip flexion (lifting your knee). Do not try to strengthen this too early, continue to practice walking and stairs and this will come. - Outpatient physical therapy can be helpful to help return you to a normal gait and improve your flexibility and strength. This can start around 2 weeks. For some patients, it?s not necessary. Usually this is determined at the time of discharge or at the first post-operative visit. - You should wear the PURVI hose on both legs for 2 weeks. Dressing: Keep the surgical dressing in place for at least one week. After the first week it may be removed and replace with light gauze and tape or nothing. It may get wet after 3 days but avoid soaking the dressing. If it gets wet, just lightly pat dry. It is important to always keep some gauze between skin folds, especially when you are sitting. Spend some time with the wound exposed when you are lying flat as the incision does wrinkle onto itself. Medications: - You should take Tylenol and an anti-inflammatory Celebrex as your primary pain control medications. If the Celebrex is too expensive or not covered, please call the office for another alternative (Advil/Ibuprofen or Naproxen/Aleve). - You have been prescribed a stronger pain medication Oxycodone for breakthrough pain, take as needed as prescribed. - You have also been prescribed a stomach acid reduction agent Pantoprozole to help reduce stomach acid and reflux. - You have also been prescribed Decadron to help with post-operative nausea and pain. You will take this for two days starting tomorrow. - You will be taking Aspirin 81mg twice a day for DVT prevention unless instructed otherwise. - If you have constipation you should take Colace or Miralax (both [id number]). It takes most people 3-4 days to have a bowel movement. Follow-up: 2 weeks If you have any acute concerns or questions, please do not hesitate to contact the office at [phone]. You may contact Dr. Nunn with any questions after hours through the hospital at [phone] or on his cell phone at [phone]. Stand Alone Forms: Anesthesia Discharge Inst., Rosalba Mathis ([facility]) Referrals: Sonny Nunn MD [ [facility] STAFF PHYSICIAN] - 09/08/24 11:15 am Equipment/Supplies: Walker Activity:: Activity as Tolerated Shower/Bathe:: 72 hours Diet:: As Tolerated Discharge Orders Discharge Orders: Discharge Order (Routine); Ordered 08/24/24 Ordered By: Everett Guajardo DS: Diagnosis Discharge Diagnosis (1) Primary osteoarthritis of left hip: Status: Chronic
[2024-08-24] MEDS: Celecoxib 200 MG CAP 400 MG PO (09:05)
[2024-08-24] MEDS: Acetaminophen 500 MG TAB 1000 MG PO (09:05)
--- NOTE | 2024-08-24 09:25 | W.ANESPRE ---
General Info Date of Service Date Performed: 08/24/24 Height: 5 ft 3 in Weight: 102.9 kg Body Mass Index (BMI): 40.1 Surgical Procedure: Operation Date: 08/24/24 10:05 Proposed Procedure Side Surgeon p Hip Total Hip Anterior, ACTIS Left Sonny Nunn MD Meds Allergies and Home Medications Allergies Allergy/AdvReac Type Severity Reaction Status Date / Time Penicillins Allergy Mild rash Verified 08/24/24 08:57 Home Medication ?Medication ?Instructions ?Recorded hydrochlorothiazide 25 mg tablet 25 mg PO DAILY 03/24/16 ejmjfqctxqfn-ytuyqyud-mmsm 1 ea PO BID 05/07/16 fumarate 7.5 mg-folic acid 400 mcg tablet calcium carbonate (Calcium 600) 600 mg PO BID 05/01/21 cholecalciferol (vitamin D3) 50 50 mcg PO DAILY 05/01/21 mcg (2,000 unit) capsule clotrimazole-betamethasone 1 1 applic topical BID 05/01/21 %-0.05 % topical cream levothyroxine 75 mcg tablet 137 mcg PO DAILY 05/31/21 (Synthroid) magnesium chelate, malate 125 mg PO DAILY 05/23/22 turmeric 100 mg-emily 150 1 cap PO DAILY 05/23/22 mg-olive 50 mg-oreg 150 mg-capryl capsule dextrin 3 gram/3.5 gram oral powder 3 g PO DAILY 07/22/22 metoprolol succinate 25 mg 50 mg (2 x 25 mg) PO DAILY #180 05/25/23 tablet,extended release 24 hr tabs furosemide 20 mg tablet 20 mg PO DAILY 08/12/24 acetaminophen 500 mg tablet 1,000 mg (2 x 500 mg) PO TID #90 08/24/24 tabs aspirin 81 mg tablet,delayed 81 mg PO BID #60 tabs 08/24/24 release celecoxib 200 mg capsule 200 mg PO BID #60 caps 08/24/24 dexamethasone 4 mg tablet 4 mg PO DAILY #2 tabs 08/24/24 docusate sodium 100 mg capsule 100 mg PO BID PRN #28 caps 08/24/24 oxycodone 5 mg tablet 5 mg PO Q4H PRN pain #12 tabs 08/24/24 pantoprazole 40 mg tablet,delayed 40 mg PO DAILY #14 tabs 08/24/24 release Current Visit Medications: Current Medications Generic Name Dose Route Start Last Admin Trade Name Freq PRN Reason Stop Dose Admin Acetaminophen 1,000 mg 08/24/24 06:00 08/24/24 09:05 Acetaminophen 500 Mg Tab PO 08/24/24 23:59 1,000 mg PREOP ALLISON Administration Acetaminophen 1,000 mg 08/24/24 07:21 Acetaminophen 500 Mg Tab PO 09/23/24 08:29 TID PRN Analgesia Celecoxib 400 mg 08/24/24 06:00 08/24/24 09:05 Celecoxib 200 Mg Cap PO 08/24/24 23:59 400 mg PREOP ALLISON Administration Docusate Sodium 100 mg 08/24/24 07:21 Docusate Sodium 100 Mg Cap PO 09/23/24 07:20 BID PRN PRN Constipation Gabapentin 300 mg 08/24/24 06:00 Gabapentin 300 Mg Cap PO 08/24/24 23:59 PREOP ALLISON Ringer's Solution 1,000 mls @ 80 mls/hr 08/24/24 06:00 IV 08/24/24 23:59 INFUSION ALLISON Cefazolin Sodium/Dextrose 2 gm in 50 mls @ 100 mls/hr 08/24/24 06:00 Ancef Duplex IVPB 08/24/24 23:59 PREOP ALLISON Tranexamic Acid/Sodium Chloride 1,000 mg in 100 mls @ 600 mls/hr 08/24/24 06:00 IVPB 08/24/24 23:59 PREOP ALLISON IV Miscellaneous Supplies 1 each 08/24/24 06:00 Iv Access IV 08/24/24 23:59 DIRECTED ALLISON Ondansetron HCl 4 mg 08/24/24 07:21 Ondansetron 4 Mg/2 Ml Vial IVP 09/23/24 07:20 Q6H PRN PRN Nausea Oxycodone HCl 0 mg 08/24/24 07:21 Oxycodone 5 Mg Tab PO 09/23/24 07:20 Q3H PRN PRN Pain Polyethylene Glycol 17 gm 08/24/24 07:21 Polyethylene Glycol 3350 17 Gm Packet PO 09/23/24 07:20 BID PRN PRN Constipation Sodium Chloride 0 ml 08/24/24 06:00 Normal Saline Flush 10 Ml Syr IV 08/24/24 23:59 PRN PRN Sodium Chloride 0 ml 08/24/24 06:00 Normal Saline 10 Ml Vial IJ 08/24/24 23:59 DIRECTED PRN Sterile Water 0 ml 08/24/24 06:00 Water,Injection,Sterile 10 Ml Vial IJ 08/24/24 23:59 DIRECTED PRN Tranexamic Acid 1,300 mg 08/24/24 07:34 Tranexamic Acid 650 Mg Tab PO 08/24/24 23:59 DIRECTED ALLISON PFSH Active Problems Active Problems: Problem Status Onset Code History of total left hip replacement Acute 08/24/24 Z96.642 LOPES (dyspnea on exertion) Acute R06.09 Osteoarthritis of left knee Acute M17.12 Osteoarthritis of right knee Chronic M17.11 Vertigo Acute R42 Low back pain Acute M54.50 Primary osteoarthritis of left hip Chronic M16.12 Atrial fibrillation Chronic I48.91 Medical History Medical History Cataract [place] HTN (hypertension) Hypothyroidism Surgical History Surgical History History of cataract surgery Colonoscopy - IV Sedation (05/07/16) Tobacco Smoking/Tobacco Use Status: Former Tobacco Use Passive smoking exposure: Yes Alcohol Alcohol Intake: current Alcohol intake frequency: a few times a month Substance Use Substance use: Never Substance use type: does not use Vital Signs and Lab Results Vital Signs Most Recent Vital Signs in EMR: Most Recent Vital Signs Temp Pulse Resp BP Pulse Ox 36.5 C 57 L 16 157/65 H 96 08/24/24 08:48 08/24/24 08:48 08/24/24 08:48 08/24/24 08:48 08/24/24 08:48 Lab Results Blood Type / Crossmatch: No Data to Display Complete Blood Count: White Blood Count 6.60 10^3/uL (4.4-10.8) 08/12/24 11:27 Red Blood Count 4.24 10^6/uL (3.93-5.22) 08/12/24 11:27 Hemoglobin 13.8 g/dL (11.2-15.7) 08/12/24 11:27 Hematocrit 40.5 % (36.0-46.0) 08/12/24 11:27 Platelet Count 225 10^3/uL (130-400) 08/12/24 11:27 Complete Metabolic Panel: Sodium 133 mmol/L (136-145) L 08/12/24 11:27 Potassium 3.7 mmol/L (3.5-5.1) 08/12/24 11:27 Chloride 95 mmol/L (98-107) L 08/12/24 11:27 Carbon Dioxide 33.3 mmol/L (21.0-32.0) H 08/12/24 11:27 BUN 20 mg/dL (7-18) H 08/12/24 11:27 Creatinine 0.7 mg/dL (0.55-1.02) 08/12/24 11:27 Est GFR (CKD-EPI 2020) 88.47 (mL/min/1.73m2) 08/12/24 11:27 Magnesium 2.1 mg/dL (1.8-2.4) 08/12/24 11:27 Calcium 9.8 mg/dL (8.5-10.1) 08/12/24 11:27 Glucose 98 mg/dL (74-106) 08/12/24 11:27 Hemoglobin A1c 5.5 % (<5.7) 08/12/24 11:27 Liver Function Panel: No Data to Display Coagulation Panel: No Data to Display Cardiac Panel: No Data to Display Arterial Blood Gas: No Data to Display Venous Blood Gas: No Data to Display Pancreas Panel: No Data to Display Thyroid Panel: Thyroid Stimulating Hormone (TSH) 3.78 uIU/mL (0.36-3.74) H 08/12/24 11:27 Infectious Disease: No Data to Display Blood Cultures: No Data to Display Toxicology Panel: No Data to Display Imaging and Studies Imaging and Studies Study information below may be from another EMR and interpreted by another provider. Please see original notes in EMR for more complete details. EKG Summary: 08/19/24 Conclusion Atrial fibrillation...V-rate 61- 82, irreg A-activity Low voltage, precordial leads...precordial leads <1.0mV Conclusion Atrial fibrillation at a rate of 73. No acute T or ST changes Echocardiogram Summary: 08/14/23 EXAM: Comprehensive 2D, Doppler, and color-flow Echocardiogram Patient Location: Out-Patient Mechanical Service Specialist: Tesha Guthrie RDCS ([facility]) Indications: Exertional dyspnea, atrial fibrillation, CHF Other Information Study Quality: Adequate. Technically limited study due to body habitus. Conclusion Normal left ventricular wall thickness and chamber size EF is 55-60% . Wall motion is normal. Patient is in atrial fibrillation with beat to beat variation Normal right ventricualr size and function Left atrium is moderately dilated. Right atrium is mildly dilated Mild aortic vavle sclerosi Mild mitral annular calcification Trace to mild mitral and tricuspid regurgitation RVSP is 30 mmHg Conclusion Normal left ventricular wall thickness and chamber size. Estimated ejection fraction is 55 to 60%. Wall motion is normal Normal right ventricular size and systolic function Mildly dilated left atrium. Right atrium is normal in size Normal aortic valve without stenosis or regurgitation Moderate mitral annular calcification. Trace mitral regurgitation Normal tricuspid valve with trace to mild regurgitation, normal estimated right ventricular systolic pressure Normal pulmonic valve Mildly dilated ascending aorta Wall motion Anesthesia Assessment and Plan Anesthesia History Personal History: No History of Anesthesia Complications Family History: No Family History of Anesthesia Complications Exercise Tolerance Exercise Tolerance: Metabolic Equivalents<4 Cardiac & Pulmonary Exam Cardiac Exam: Normal S1/S2 Heart Sounds Pulmonary Exam: Clear Bilateral Breath Sounds Cardiac and Pulmonary Comment:: 1+ pedal/ankle edema right slightly greater than left, forgot her water pill yesterday, lungs clear, no increase in her SOB, chronic a-fib rate controlled Implantable Cardiac Device Does patient have a Pacemaker or an ICD?: No Airway Exam Known Difficult Airway: No Mallampati Class: 3 Mouth Opening: Normal (> 3cm) Thyromental Distance: Greater than 3 cm Neck Range of Motion: Full ROM Neck Circumference: Normal Teeth Condition: Removable Dentures/Plates Upper and Removable Dentures/Plates Lower ASA Classification ASA Score: ASA 3 Emergency Case?: No NPO Status NPO Status: NPO Clears >2 hours, Solids >8 hours Anesthesia Plan Resuscitation Status: Full Code Anesthesia Technique: Spinal Anesthesia Airway Planned: Natural Airway Monitors Used: Standard Monitors
[2024-08-24] MEDS: Lactated Ringers 1,000 ML 80 ML IV (09:26)
--- NOTE | 2024-08-24 10:00 | DI.RAD_ITS ---
Exam(s) XR HIP LT IN OR EXAM: XR HIP LT IN OR CLINICAL HISTORY: LEFT HIP OA TECHNIQUE: 2D and realtime digital imaging was performed. CONTRAST MATERIAL: Refer to procedure report. COMPARISON: CR XR HIP LT COMPLETE AP PELVIS from 05/23/2024 FINDINGS: Fluoroscopy was provided for Dr. Nunn during the performance of a left total hip arthroplasty. Please refer to the procedure report for complete details. Ka,r=6.7 mGy IMPRESSION: RADIATION DOSE DELIVERED: 0.0 0.0 0
[2024-08-24] MEDS: ceFAZolin 2 GM/50 ML BAG IVPB (10:31)
[2024-08-24] MEDS: TRANEXAMIC ACID/SOD. CHL. 1,000 MG/100 ML BAG 600 MG IVPB (10:48)
--- NOTE | 2024-08-24 13:08 | ROE_ITS ---
Operative Note Operative Note PRE-OP DIAGNOSIS: Left Hip Osteoarthritis POST-OP DIAGNOSIS: same PROCEDURE: Left Anterior Total Hip Arthroplasty with Intraoperative Navigation SURGEON: Sonny Nunn HAND STRAIGHTENER: Everett Guajardo ANESTHESIA TYPE: Spinal Refer to Anesthesia Record ESTIMATED BLOOD LOSS: 100 PATHOLOGY: none sent TOURNIQUET TIME: 0 COMPLICATIONS: None Patient was transported to: PACU Patient's condition: stable Implants: 1. Depuy [place] Acetabular Component, 50mm 2. Depuy Acetabular Liner, [id number] 3. Depuy Actis Standard Collared Femoral Stem, Size 3 4. Depuy Altrx Ceramic Femoral Head, Size 32+5mm Indications: I have seen Emily in clinic for symptoms of hip arthritis, confirmed with radiographic findings. She has exhausted nonoperative methods and was having significant limitations in daily function and desired better function and less pain. I discussed the technical details of a hip replacement. I explained the risks of the procedure to include, but not limited to, bleeding, infection, pain, stiffness, fracture, damage to nerves and vessels, damage to muscles and tendons, loosening, instability, leg length inequality, need for repeat procedure, blood clot and cardiopulmonary demise. Despite these risks, Emily elected to proceed. Findings: There was significant signs of arthritis throughout the hip with large osteophytes, denuded cartilage, and significant synovitis. Procedure Description: Emily was greeted in the preoperative holding area where the correct side was identified and marked. The consent was reviewed with the patient and signed. The history and physical was updated. All questions were answered. She was taken back to the operating room. A spinal anesthestic was then administered. The feet were wrapped with cast padding and Coban and then placed into the boot liners and then into the boots. Care was taken to protect the skin and make sure the heels were fully down and the boots were stable. The patient was then positioned onto the HANA table. Both legs were held in a neutral position. SCDs were applied. The patient was then slid down onto a peroneal post. Prophylactic antibiotics in the form of Cefazolin were administered. 1g of Tranxemic Acid was given intravenously within 30 minutes of incision. The left leg was then prepped with Chloraprep and draped in a standard fashion. A second prep with Chloraprep was performed prior to placeme nt of a shower-curtain type drape with Iodine impregnated skin protection. A timeout to confirm correct identity, side and site, procedure, allergies, anesthesia, and medical concerns was performed. An obliquely oriented incision was made starting lateral to the ASIS and running distal over the Tensor Fascia Cece (TFL) muscle belly toward the fibular head, approximately 10cm. The skin and soft tissue was dissected sharply, through Chase?s fascia, and to the fascia of the TFL. With the fascia and superior border of the IT band identified, the fascia was incised with a new knife just above any perforators from the IT band. The TFL muscle belly was bluntly dissected away from the fascia and moved laterally. The fat between TFL and rectus was identified to ensure the dissection was not within the TFL. Blunt dissection created space between abductors and the capsule and retractor was placed over the lateral femoral neck. The fibers of the rectus femoris tendon were identified and these were freed from the anterior capsule. A second cobra retractor was placed around the medial femoral neck. The TFL was further retracted laterally to show the deep fascia. Careful dissection through this layer identified three main crossing vessels of the lateral femoral circumflex. These were cauterized in multiple locations and then cut without any noticeable bleeding. The TFL was further released bluntly from the deep fascia to expose anterior hip capsule and fat The soft tissue orthopaedic retractor was then placed beneath the TFL and against sartorius and medial soft tissues to protect and retract the soft tissues. A T-capsulotomy was then performed starting at the superior lateral acetabulum and moving distally to the intertrochanteric ridge. These capsular flaps were tagged with a No. 1 Vicryl and elevated from within. The capsular flaps were released to the shoulder of the lateral neck and to the lesser trochanter to give excellent visualization of the proximal femur. A neck osteotomy was performed using an oscillating saw based on preoperative templates. This cut started in the shoulder and of the lateral neck and exited medially. The saw was at all times directed medially to avoid injury to the greater trochanter. Gross traction was applied to the leg and the osteotomy opened. The femoral head was removed with a corkscrew, making sure to protect the TFL on its exit. Traction was released after head removal. This was measured on the back table to determine the starting reamer size. Portions of the rectus obscuring visualization were minimally elevated off the superior acetabulum. An anterior retractor was placed over the anterior wall between capsule and labrum and attached to the Gripper retraction system. The femur was rotated to 90 degrees and medial capsule was fully released until the lesser trochanter was palpable and visible; the femur was returned to 30 degrees. A posterior retractor was placed similarly between capsule and labrum. This provided excellent visualization. The contents of the cotyloid fossa were removed with electrocautery and the labrum was removed with a knife. There was a notable floor osteophyte. There was significant chondromalacia of the superior acetabulum. Acetabular reaming began with a 45mm reamer. This first reaming was directed anterior to posterior and medial to get down to the true floor. This was inspected and reamed until the true floor was reached. The anterior retractor was then released and entry and exit was provided by traction on the capsular flaps. I then reamed sequentially up to a 50mm reamer where good fit was obtained. The larger reamers were oriented based on anatomical reference of the anterior and lateral españa to ensure proper abduction and anteversion. Positioning and size was confirmed with the fluoroscopy. A 50mm Depuy [place] acetabular component was selected. The acetabulum was reamed around the periphery with the selected acetabular size to prevent a rim fit. The deep tissues were irrigated. The acetabular component was then impacted in a position of about 40-45 degrees of abduction and 15-20 degrees of anteversion, using the patient?s anatomy as the ultimate landmark. Fluoroscopy was used to confirm this. There was excellent rectification printer of the acetabular component and the inserting handle was removed. The acetabular liner, Depuy [id number] polyethylene liner, was inserted and lined up with the tines of the acetabular component. There was no soft tissue interposition. The liner was then impacted into position and confirmed to be well-seated. A portion of the jeffy-articular cocktail was then injected around the acetabulum into the capsule and periosteum. This cocktail consisted of 123mg of Ropivacaine, 0.25mg of Epinephrine, 0.04mg of Clonidine, and 15mg of Ketorolac, diluted to 50cc. The leg was rotated to 120 degrees. Any remaining medial capsule was released until the lesser trochanter was easily palpable. A retractor was placed medially. The lateral capsule was further released into the shoulder to allow access to the greater trochanter. A [place] retractor was placed over the greater trochanter which allowed the trochanter to flip in front of the capsule for excellent exposure. The leg was brought down into maximal extension and 20 degrees of adduction while ensuring there was no impingement on the acetabulum. Any remnant capsule within the trochanter was released. Piriformis and obturator externis were identified and protected. There was excellent access to the proximal femur. The lateral neck remnant was removed with a rongeur. A blunt canal probe was used to identify the canal and trajectory for later broaching. A box osteotome initiated the broach course. A small curved rasp and a curved curette were used to work laterally. Broaching then began with a starter Actis broach. This was inserted manually around the trochanter and into the canal before mallet blows. The broach was seated to a few millimeters below the cut level based on the neck cut and the preoperative template. Sequential broaching was continued with the [employer] pneumatic broaching device until a tight fit was obtained with good rotational control of the femur. A trial standard neck was inserted along with a +1 trial head. The leg was brought out of extension and adduction and then reduced with trac tion and internal rotation. The leg was stable anteriorly in a position of 30 degrees of extension and 90 degrees of external rotation. Fluoroscopy was used to ensure there was no fracture and the stem was seated well. Leg lengths were checked with an AP pelvis and pelvic reference points. Sportlobster navigation system was used to confirm appropriate positioning and leg length and offset. The stem was advanced 3 mm and the head offset was changed to +5mm. Once content with the desired offset and leg lengths, the leg was brought back into extension, external rotation and adduction. The periosteum and surrounding tissue was injected with remaining portion of the jeffy-articular cocktail. The proximal femur was irrigated as well as the deep tissues. The HipSnipuy [email or web address] standard collared stem, size 3, was then manually inserted into the proximal femur making sure to control rotation. It was then malleted into position with light blows, giving breaks to allow bone expansion and decrease risk of fracture. The selected Depuy Altrx Ceramic Head, size 32+5mm, was then placed onto the clean and dry trunnion and secured with impaction onto the tapered fit. The leg was brought back out of extension and adduction and reduced with traction and internal rotation. Stability was confirmed with no shuck at 90 degrees of external rotation and 30 degrees of extension. No impingement t hrough range of motion arc. Final x-ray images were obtained with fluoroscopy to confirm adequate positioning and no intraoperative fracture. The deep tissues were thoroughly irrigated with Surgiphor, betadine solution. This was allowed to sit in the wound for 3 minutes before being thoroughly irrigated out with normal saline. The capsule was then reapproximated with the previously placed sutures. The TFL fascia was finally closed with a No. 2 Stratafix, barbed suture. Deep tissues were then reapproximated with 0 Vicryl and a running 2-0 Vicryl. The skin was closed with a running 4-0 Monocryl in a subcuticular fashion. This was reinforced with skin glue. A Mepilex silver dressing was applied. At the end of the case, all counts were correct. Emily was transferred to the hospital bed without difficulty and suffering no apparent complication. Emily has a good prognosis. Physical therapy will start today and without restrictions, weight-bearing as tolerated. Aspirin 81mg BID will be used for DVT prophylaxis. Date of Procedure: 08/24/24
[2024-08-24] MEDS: oxyCODONE 5 MG TAB PO (13:36)
[2024-08-24] MEDS: Tranexamic Acid 650 MG TAB 1300 MG PO (13:37)
--- NOTE | 2024-08-24 14:48 | PT.INIE ---
PT Notes Visit Reasons: L THR Physical Therapy Day Surgery Initial Evaluation Date: 08/24/2024 Referring Doctor: GORDO Campos PT Orders: PT CONSULT: S/P Ortho surgery Precautions: WBAT through left LE with AD. Patient Profile/Admitting Diagnosis: Emily is a 78-year-old with send primary osteoarthritis of the left hip and status post left anterior total hip arthroplasty on postoperative day 0. PMHX: Medical History (Updated 08/12/24 @ 10:30 by Clare Duffy) Cataract [place] HTN (hypertension) Hypothyroidism Surgical History (Updated 08/12/24 @ 10:30 by Clare Duffy) History of cataract surgery Colonoscopy - IV Sedation (05/07/16) Social History/Home Situation: Independent in all aspects of ADLs prior to [id number] although has had worsening mobility ADL performance dur to arthritis. Has 20 steps to get into to enter house with both rails that are far apart. Equipment Owned/DME: [facility] Subjective: Complained of 2-3/10 cramping pain in the L hip at onset that subsided with ambulation performance. No falls in the past year. Objective: General Observation: Mepilex Ag over surgical incision. TEDS to B LE. Otis present in room during throughout session. Mental Status: A and O x 4 Pain: 2-3/10 cramping pain in the L hip ROM: Right Lower Extremity: Hip flexion WFL. Hip abduction WFL. Knee flexion WFL. Ankle dorsiflexion WFL. Ankle plantarflexion WFL. Left Lower Extremity: Hip flexion allows up to 110 degrees in sitting. Hip abduction WFL. Knee flexion WFL. Ankle dorsiflexion WFL. Ankle plantarflexion WFL. Strength: Right Lower Extremity: Hip flexors 5/5. Hip abductors 5/5. Knee flexors 5/5. Knee extensors 5/5. Ankle dorsiflexors 5/5. Ankle plantarflexors 5/5. Left Lower Extremity:Hip flexors 3-/5. Hip abductors 4/5. Knee flexors 4/5. Knee extensors 4-/5. Ankle dorsiflexors 5/5. Ankle plantarflexors 5/5. Sensation: Intact as to pain and light pressure in B LE Bed Mobility/Transfers: MInimaL cueing provided for use of B hands as needed for support, movement sequence, AD management, and posture to reduce fall risk and minimize pain report Supine to sit stand by assist Sit to stand contact-guard assist with FWW Stand to sit standby assist with FWW Bed to chair standby assist with FWW Gait: Facilitated safe and correct performance of level surface covering a distance of 150 feet with step to gait pattern requiring only standby assist and minimal cueing for safe correct gait pattern, AD management and weight distribution, and posture to minimize pain report and reduce fall risk. Stairs: Guided patient with safe and correct negotiation of 3 x 4 inch steps and 2 x 6 inch steps while holding onto bilateral rails with step to gait pattern with front wheeled walker and contact-guard assist with minimal verbal cueing provided for increased knee flexion on the left during each ascent, hand placement, and posture to minimize pain reported and reduce fall risk. Balance: Static Sitting: Normal Dynamic Sitting: Normal Static Standing: Fair Dynamic Standing: Fair Special Tests: Mobility Limitations Standardized Measure [facility] AM-PAC 6 clicks Basic Mobility Inpatient Short Form: Raw Score: 22 CMS Score: 21% deficit Informed Consent/Education: Trained patient with correct performance of exercises below to maximize motor control, joint flexibility, soft tissue extensibility of the hip musculature to facilitate return to independent functional mobility performance. Access Code: [email or web address] URL: [email or web address] Date: 08/24/2024 Prepared by: Juanita Rueda Exercises - Gluteal Sets - 1 x daily - 7 x weekly - 1 sets - 10 reps - 5 hold - Supine Heel Slide - 1 x daily - 7 x weekly - 1 sets - 10 reps - 5 hold - Supine Ankle Pumps - 1 x daily - 7 x weekly - 1 sets - 10 reps - 5 hold - Seated March - 1 x daily - 7 x weekly - 1 sets - 10 reps - 5 hold - Seated Long Arc Quad - 1 x daily - 7 x weekly - 1 sets - 10 reps - 5 hold patient instructed in purpose of PT consult. Packet containing LACY exercise protocol has been given to patient. Education and training on initial set of exercises that can be done at home have been completed with patient. Assessment: Patient requires use of a front wheeled walker for all mobility ADL performance to maximize independence and reduce fall risk. patient presents with clinical signs and symptoms consistent with current/admitting diagnoses that have resulted to mobility limitations, gait instability, generalized weakness, and impairment of motor control as demonstrated by the following impairment level findings: 1. Decreased strength to L hip major muscle groups 2. Impaired standing balance 3. Limitation of joint range of motion in left hip Impairments are contributing to the following functional limitations: 1. Inability to safely ambulate without assistive device 2. Increase completion time for mobility ADL performance 3. Increased fall risk Patient is assessed as a 63042 moderate complexity based on the following: History: 78-year-old female with impairment level findings, functional limitations, and past medical history as indicated above Examination: Demonstrable impairment in strength, balance, and mobility level with underlying impairments and functional limitations as documented above Presentation: Evolving Decision Makin moderate complexity Goals: N/A. PT evaluation and 1-2 treatment sessions only for functional mobility training using recommended AD and for HEP instruction. Plan of Care/Treatment Plan: N/A. PT evaluation and 1-2 treatment session only for functional mobility training using recommended AD and for HEP instruction. DISCHARGE RECOMMENDATIONS: Home when medically cleared by orthopedic surgeon. Recommend outpatient PT services in order to optimize functional mobility outcomes and facilitate return to independent community ambulation without an assistive device. TREATMENT CODE/TIME: 08642 x 28 minutes for 1 unit (14:10?14:38). Thank you for the opportunity to participate in the care of this patient.
--- NOTE | 2024-08-24 14:55 | W.ANESPOSTOP ---
Postoperative Evaluation Date, Time and Location Date Performed: 08/24/24 Time Performed: 14:55 Patient Location: Day Surgery Unit Vital Signs Most Recent Imported Vital Signs: Most Recent Vital Signs Temp Pulse Resp BP Pulse Ox 36 C L 63 16 152/68 H 98 08/24/24 14:11 08/24/24 14:11 08/24/24 14:11 08/24/24 14:11 08/24/24 14:11 Pain Score Most Recent Pain Score: Most Recent Pain Score Pain Level 6 08/24/24 13:34 Assessment Mental Status: Awake (Alert & Oriented to Patient Baseline) Airway and Respiratory Function: Patent airway with normal (patient baseline) respiratory exam Cardiovascular Function: Hemodynamically Stable Hydration Status: Adequately Hydrated Nausea & Vomiting: No Nausea or Vomiting Pain: Pain is tolerable per patient Peripheral Nerve Block: Patient did not receive a nerve block
== END 2024-08-24 14:59 | disposition home or self-care (01) ==
LOC: SUR 08:08
PROVIDERS: PCP Family Medicine; Visit Provider Student in an Organized Health Care Education/Training Program
PROC: (CPT 27130; principal; 2024-08-24 09:45)
DX: M16.12 Unilateral primary osteoarthritis, left hip (principal)
CPT/HCPCS: 20985; 27130; 97162; 73501; C1776; J0690; J1100; J1596; J2003; J2250; J2401; J2405; J2704

== ENCOUNTER 2024-09-08 14:07 | Outpatient (CLI) | payer MEDICARE, SELFPAY ==
--- NOTE | 2024-09-08 10:46 | DI.RAD_ITS ---
Exam(s) XR HIP LT COMPLETE AP PELVIS EXAM: XR HIP LT COMPLETE AP PELVIS CLINICAL HISTORY: 1st post op s/p L LACY. TECHNIQUE: 2D digital imaging was performed. Two images were obtained. AP pelvis and lateral hip vi ews were obtained. COMPARISON: CR XR HIP LT COMPLETE AP PELVIS from 05/23/2024 XA XR HIP LT IN OR from 08/24/2024 FINDINGS: BONES: There are stable post operative changes of a left total hip arthroplasty present. No definite fracture or dislocation. JOINTS: The orthopedic hardware is in good position. No evidence of hardware loosening. SOFT TISSUE: Normal. IMPRESSION: Stable left total hip arthroplasty. DATA REPOSITORY: RADIATION DOSE DELIVERED:
== END 2024-09-08 14:08 | disposition home or self-care (01) ==
LOC: DIORS 14:07
PROVIDERS: PCP Family Medicine; Referring Provider Family Medicine; Visit Provider Physician Assistant
DX: Z96.642 Presence of left artificial hip joint (principal); Z47.1 Aftercare following joint replacement surgery
CPT/HCPCS: 99024; 73502

== ENCOUNTER → 2024-10-06 10:33 | Outpatient (BNVA) | payer MEDICARE, SELFPAY | PROVIDERS: PCP Family Medicine; Referring Provider Family Medicine; Visit Provider Physician Assistant | DX: Z96.642 Presence of left artificial hip joint (principal); Z47.1 Aftercare following joint replacement surgery | CPT/HCPCS: 99024 ==

== ENCOUNTER 2024-10-27 01:20 | Outpatient (CLI) | payer MEDICARE, SELFPAY ==
--- NOTE | 2024-10-27 | DI.MAMMO_ITS ---
Exam(s) MAMMO SCREENING EXAM: MAMMO SCREENING CLINICAL HISTORY: Screening, Z12.31. TECHNIQUE: Bilateral full field digital CC and MLO mammographic images were obtained with 3D tomosynthesis and utilizing computer aided detection (CAD). COMPARISON: Prior mammograms were reviewed. FINDINGS: There has been no significant change in the appearance and distribution of the fibroglandular tissue. Multiple benign calcified oil cysts are again noted in the left breast. Lesser number of the same again noted in the right breast. There are additional benign-appearing microcalcifications in both breasts. There are no new spiculated masses nor new malignant appearing microcalcification groups. There is no significant architectural distortion nor skin thickening-retraction. IMPRESSION: Able benign findings. No radiographic evidence of malignancy. BI-RADS Category 2 - Benign Findings Breast Density - Category C - The breast are heterogeneously dense, which may obscure small masses. Breast density Category C or D implies that the patient has dense breast tissue. Dense breast tissue can make it harder to find cancer on a mammogram. Dense breast tissue is also associated with an increased risk of breast cancer. This information about the result of the mammogram report was provided to the patient to raise their awareness. Use this report when you speak with the patient about their risks for breast cancer, which includes their family history. At that time, you may recommend additional screening tests (Ultrasound or MRI) as these tests may add significant information. A negative radiographic report should not delay biopsy if a dominant or clinically suspicious mass is present. Up to ten percent of cancers are not identified on mammography. A negative report may reinforce clinical impression. Adenosis and dense breasts may obscure an underlying neoplasm. False positive reports average 6 to 10%. Patient will receive a letter notifying them of these results.
--- NOTE | 2024-10-27 | DI.DEXA_ITS ---
Exam(s) XR DEXA BONE DENSITY W/WO TRACIE EXAM: XR DEXA BONE DENSITY W/WO TRACIE CLINICAL HISTORY: Asymptomatic menopausal state, Z78.0; screening for osteoporosis TECHNIQUE: COMPARISON: DX DEXA BONE DENSITY WITH TRACIE from 05/26/2017 CR XR HIP LT COMPLETE AP PELVIS from 09/08/2024 FINDINGS: Lateral Spine Image: Unremarkable. No compression deformities identified. Right hip: Total T-Score: 0.7 Total Z-Score: 2.7 T- and Z-scores: Within normal limits. Lumbar Spine: Total T-Score: 2.5. This compares to 2.1 on the prior examination. Total Z-Score: 5.1 T- and Z-scores: Within normal limits. IMPRESSION: No evidence of osteoporosis.
== END 2024-10-27 01:40 ==
LOC: DI 01:20
PROVIDERS: PCP Family Medicine; Visit Provider Family Medicine
DX: Z13.820 Encounter for screening for osteoporosis (principal); Z12.31 Encounter for screening mammogram for malignant neoplasm of breast; N60.02 Solitary cyst of left breast; Z78.0 Asymptomatic menopausal state
CPT/HCPCS: 77063; 77067; 77080

== ENCOUNTER → 2024-11-17 10:06 | Outpatient (BNVA) | payer MEDICARE, SELFPAY | PROVIDERS: PCP Family Medicine; Visit Provider Physician Assistant | DX: Z47.1 Aftercare following joint replacement surgery (principal); Z96.642 Presence of left artificial hip joint | CPT/HCPCS: 99024 ==

== ENCOUNTER 2024-12-15 10:47 | Emergency (ER) | payer MEDICARE, SELFPAY ==
[2024-12-15 10:51] VITALS: BP 179/76; PULSE 83; RESP 16; TEMP 36.7; O2SAT 98
--- NOTE | 2024-12-15 11:10 | W.ED.GENAD ---
Discharge Plan Discharge Details Chief Complaint: Cellulitis Primary Care Provider: Ellie Gray V ED Provider: Compa Noble Home Meds and New Rx's Prescriptions: No Action metoprolol succinate 25 mg tablet extended release 24 hr 50 mg PO DAILY Qty: 180 3RF cephalexin 500 mg capsule 500 mg PO QID Qty: 28 0RF vbtaxfqy-xqjs-vdfmj-oreg-capry 100 mg-150 mg- 50 mg-150 mg capsule 1 cap PO DAILY magnesium chelate, malate 125 mg magnesium capsule 125 mg PO DAILY furosemide 20 mg tablet 20 mg PO DAILY aspirin [Adult Aspirin Regimen] 81 mg tablet,delayed release (DR/EC) 81 mg PO DAILY hydrochlorothiazide 25 MG tablet 25 mg PO DAILY cholecalciferol (vitamin D3) 50 mcg (2,000 unit) capsule 50 mcg PO DAILY clotrimazole-betamethasone 1-0.05 % cream 1 applic topical BID calcium carbonate [Calcium 600] 600 mg calcium (1,500 mg) tablet 600 mg PO BID levothyroxine [Synthroid] 75 mcg tablet 137 mcg PO DAILY dextrin 3 gram/3.5 gram powder 3 g PO DAILY celecoxib 200 mg capsule See Rx Instructions .ROUTE .COMPLEX Qty: 180 0RF Dose Instruction: TAKE 1 CAPSULE BY MOUTH TWICE DAILY Rx Instructions: TAKE 1 CAPSULE BY MOUTH TWICE DAILY defpggel-gck-ozxm fum-folic ac 1 EACH tablet 1 ea PO BID acetaminophen 500 mg tablet 1,000 mg PO TID Qty: 90 3RF HPI General Date/Time Provider Initiated Documentation: 12/15/24 11:05. HPI Narrative: 79-year-old female presents to the ER by POV/ambulating with a chief complaint of continued redness and swelling of the right forearm diagnosed as cellulitis at urgent care yesterday started on cephalexin, patient started antibiotics yesterday but was recommended ER evaluation as it has not improved. It is not exacerbated by movement but feels tight, patient denies radiation of the pain to her shoulder, denies fever/shortness of breath/chest pain, denies nausea or vomiting, denies numbness tingling in the right hand. Patient is right-hand dominant. Patient not anticoagulated Related Data Home Medications ?Medication ?Instructions ?Recorded ?Confirmed hydrochlorothiazide 25 mg tablet 25 mg PO DAILY 03/24/16 12/15/24 pcluftzrlqmy-bibjjnqs-kxxx 1 ea PO BID 05/07/16 12/15/24 fumarate 7.5 mg-folic acid 400 mcg tablet calcium carbonate (Calcium 600) 600 mg PO BID 05/01/21 12/15/24 cholecalciferol (vitamin D3) 50 50 mcg PO DAILY 05/01/21 12/15/24 mcg (2,000 unit) capsule clotrimazole-betamethasone 1 1 applic topical BID 05/01/21 12/15/24 %-0.05 % topical cream levothyroxine 75 mcg tablet 137 mcg PO DAILY 05/31/21 12/15/24 (Synthroid) magnesium chelate, malate 125 mg PO DAILY 05/23/22 12/15/24 turmeric 100 mg-emily 150 1 cap PO DAILY 05/23/22 12/15/24 mg-olive 50 mg-oreg 150 mg-capryl capsule dextrin 3 gram/3.5 gram oral powder 3 g PO DAILY 07/22/22 12/15/24 metoprolol succinate 25 mg 50 mg (2 x 25 mg) PO DAILY #180 05/25/23 12/15/24 tablet,extended release 24 hr tabs furosemide 20 mg tablet 20 mg PO DAILY 08/12/24 12/15/24 acetaminophen 500 mg tablet 1,000 mg (2 x 500 mg) PO TID #90 08/24/24 12/15/24 tabs aspirin 81 mg tablet,delayed 81 mg PO DAILY 10/06/24 12/15/24 release (Adult Aspirin Regimen) celecoxib 200 mg capsule See Rx Instructions .Route 11/17/24 12/15/24 .COMPLEX #180 caps cephalexin 500 mg capsule 500 mg PO QID #28 caps 12/14/24 12/15/24 Previous Rx's ?Medication ?Instructions ?Recorded metoprolol succinate 25 mg 50 mg (2 x 25 mg) PO DAILY #180 05/25/23 tablet,extended release 24 hr tabs acetaminophen 500 mg tablet 1,000 mg (2 x 500 mg) PO TID #90 08/24/24 tabs celecoxib 200 mg capsule See Rx Instructions .Route 11/17/24 .COMPLEX #180 caps cephalexin 500 mg capsule 500 mg PO QID #28 caps 12/14/24 Allergies Allergy/AdvReac Type Severity Reaction Status Date / Time Penicillins Allergy Mild rash Verified 12/15/24 10:54 General Stated Complaint: Cellulitis ADAN: 3 Review of Systems All systems reviewed & are unremarkable except as noted in HPI and below Exam Narrative Exam Narrative: GENERAL APPEARANCE: Well-nourished, non-toxic, awake and alert, atraumatic, no acute distress. SKIN: Warm, pink, dry, diffuse mild swelling and pink erythema on the volar aspect of the forearm traced with marker, not spreading outward from marked skin yesterday, no pain with passive or active range of motion at the right elbow, no large fluctuant swelling or open lesions, right radial pulse 2+, cardiovascular or nurse strength 5/5, sensation intact, brisk capillary refill HEAD: Normocephalic, atraumatic, normal hair distribution for gender/age. EYES: Normal conjunctiva, no exudates on lids/lashes. ENT: Nares patent, no circumoral cyanosis, no facial swelling NECK: Supple, trachea midline, painless cervical ROM. LUNGS/CHEST: Non-labored respirations, normal A/P diameter, symmetrical expansion, no chest wall deformity HEART (CV/PV): No peripheral edema, no JVD. ABDOMEN: Soft, non-distended, no guarding. MSK: Normal ROM, no deformity to bilateral UEs or LEs, moving all extremities without weakness, no cyanosis, spine midline without tenderness, normal curvature. NEURO: Mental Status AAOx4 - alert to person, place, time, events No facial droop, no forehead involvement. Motor: No focal weakness - strength 5/5 in bilateral UEs and LEs, proximal and distal, symmetric. Sensory: sensation intact to light touch globally. Gait normal: patient ambulated without ataxia into ED room. PSYCH: euthymic, cooperative, pleasant, appropriate speech Course Vital Signs Vital signs: Vital Signs Temperature 36.7 C 12/15/24 10:51 Pulse 83 12/15/24 10:51 Respiratory Rate 16 12/15/24 10:51 Blood Pressure 179/76 H 12/15/24 10:51 Pulse Oximetry 98 12/15/24 10:51 Temperature 36.7 C 12/15/24 10:51 Temperature Source Oral 12/15/24 10:51 Pulse 83 12/15/24 10:51 Respiratory Rate 16 12/15/24 10:51 Blood Pressure 179/76 H 12/15/24 10:51 Pulse Oximetry 98 12/15/24 10:51 Oxygen Delivery Method Room Air 12/15/24 10:51 Oxygen Flow Rate 0 12/15/24 10:51 Pain Level 8 12/15/24 10:51 Medical Decision Making This dictation utilizes [id number] dictation software and may contain unedited grammatical errors. 79-year-old female presents to the ER by POV/ambulating with a chief complaint of continued redness and swelling of the right forearm diagnosed as cellulitis at urgent care yesterday started on cephalexin, patient started antibiotics yesterday but was recommended ER evaluation as it has not improved. It is not exacerbated by movement but feels tight, patient denies radiation of the pain to her shoulder, denies fever/shortness of breath/chest pain, denies nausea or vomiting, denies numbness tingling in the right hand. Patient is right-hand dominant. Patients' medical history: Hypertension, low back pain, atrial fibrillation-not anticoagulated. Family and social history: Noncontributory. Pertinent exam findings / vital signs include diffuse mild swelling and pink erythema on the volar aspect of the forearm traced with marker, not spreading outward from marked skin yesterday, no pain with passive or active range of motion at the right elbow, no large fluctuant swelling or open lesions, right radial pulse 2+, cardiovascular or nurse strength 5/5, sensation intact, brisk capillary refill. Benign cardiopulmonary exam with nonlabored respirations, afebrile and nontoxic-appearing. Differential / pathologies of concern include cellulitis, unlikely septic arthritis. Diagnostic studies of: -None- patient has follow-up at PCP's office, is non-toxic- can pursue lab work in outpatient setting. Interventions of: -Added MRSA coverage with PO clindamycin. ED Course/Assessment/Plan: 79-year-old female presents with persistent cellulitis of the right elbow and forearm, started on cephalexin 24 hours ago, adding MRSA coverage with clindamycin here today, patient is overall nontoxic, has no signs or symptoms of septic arthritis or neurovascular compromise, no lymphadenitis, no fever to suggest any systemic involvement of sepsis. Recommend Tylenol and ibuprofen as tolerated and follow-up with outpatient lab work if any concerns for worsening by tomorrow with possible return to ER. Findings not consistent with sepsis, tachycardia, unstable vitals, septic arthritis. Disposition of cellulitis of right forearm. Patient verbalized understanding of the plan and return to ED criteria and engaged in shared decision making. Medical Records Medical records reviewed: Yes I reviewed the patient's medical records. PFSH All Active Problems (Updated 12/14/24 @ 12:10 by Quyen Langston MD) Cellulitis of right elbow (Acute) Olecranon bursitis, right elbow (Acute) History of total left hip replacement (Acute 08/24/24) LOPES (dyspnea on exertion) (Acute) Denies SOB Osteoarthritis of left knee (Acute) Osteoarthritis of right knee (Chronic) Most recent Depo-Medrol: 05/23/2024 Vertigo (Acute) Low back pain (Acute) Primary osteoarthritis of left hip (Chronic) Atrial fibrillation (Chronic) Medical History Cataract [place] HTN (hypertension) Hypothyroidism Surgical History History of cataract surgery Colonoscopy - IV Sedation (05/07/16) Social History Smoking/Tobacco Use Status: Former Tobacco Use Quit Date: 05/18/00 Smoking risk assessment performed?: Yes Alcohol Intake: current Alcohol Intake frequency: a few times a month Drug use: Never Substance use type: does not use Housing: house Do you feel safe at home: Yes Do you feel safe in your relationship?: Yes
[2024-12-15 11:15] VITALS: BP 179/76; PULSE 83; RESP 16; TEMP 36.7; O2SAT 98
[2024-12-15 11:32] VITALS: BP 125/58
== END 2024-12-15 11:39 | disposition home or self-care (01) ==
PROVIDERS: Emergency Provider Physician Assistant; PCP Family Medicine
DX: L03.113 Cellulitis of right upper limb (principal)
CPT/HCPCS: 99283 ×2

== ENCOUNTER 2024-12-27 14:28 | Emergency (ER) | payer MEDICARE, SELFPAY ==
[2024-12-27 14:33] VITALS: BP 166/80; PULSE 73; RESP 16; TEMP 36.5; O2SAT 96
--- NOTE | 2024-12-27 14:48 | W.ED.GENAD ---
Discharge Plan Disposition Patient Disposition: Home Condition: Stable Discharge Details Clinical Impression: Contact dermatitis Primary Care Provider: Ellie Gray V ED Provider: Mingo Jara Home Meds and New Rx's Prescriptions: New prednisone 10 mg tablet 10 mg PO DIRECTED Qty: 30 0RF Rx Instructions: see taper instructions, take 4 tablets x 3 days, 3 tablets x 3 days, 2 tablets x 3 days, 1 tablet x 3 days Continued metoprolol succinate 25 mg tablet extended release 24 hr 50 mg PO DAILY Qty: 180 3RF smzenprl-qcpt-caycv-oreg-capry 100 mg-150 mg- 50 mg-150 mg capsule 1 cap PO DAILY magnesium chelate, malate 125 mg magnesium capsule 125 mg PO DAILY furosemide 20 mg tablet 20 mg PO DAILY aspirin [Adult Aspirin Regimen] 81 mg tablet,delayed release (DR/EC) 81 mg PO DAILY hydrochlorothiazide 25 MG tablet 25 mg PO DAILY cholecalciferol (vitamin D3) 50 mcg (2,000 unit) capsule 50 mcg PO DAILY clotrimazole-betamethasone 1-0.05 % cream 1 applic topical BID calcium carbonate [Calcium 600] 600 mg calcium (1,500 mg) tablet 600 mg PO BID levothyroxine [Synthroid] 75 mcg tablet 137 mcg PO DAILY dextrin 3 gram/3.5 gram powder 3 g PO DAILY celecoxib 200 mg capsule See Rx Instructions .ROUTE .COMPLEX Qty: 180 0RF Dose Instruction: TAKE 1 CAPSULE BY MOUTH TWICE DAILY Rx Instructions: TAKE 1 CAPSULE BY MOUTH TWICE DAILY tzoastcm-spv-lmuu fum-folic ac 1 EACH tablet 1 ea PO BID mupirocin 2 % ointment 1 applic TOPICAL DAILY acetaminophen 500 mg tablet 1,000 mg PO TID Qty: 90 3RF Discharge Instructions Instructions: Contact dermatitis, Skin Rash ED Discharge Data Discharge Physician: Mingo Jara HPI General Date/Time Provider Initiated Documentation: 12/27/24 14:32. HPI Narrative: Patient presents emergency department after she came here 4 days ago because she thought she had an infection of the right forearm and took some antibiotics but still said now it is very itchy and the rash seems to have some hives. She does tell that before she had been infection when she was in the bushes she may have been to the poison mariela. Denies fever chills she reports itching Related Data Home Medications ?Medication ?Instructions ?Recorded ?Confirmed hydrochlorothiazide 25 mg tablet 25 mg PO DAILY 03/24/16 12/27/24 fvjwkiybfbre-daihqzea-ijeh 1 ea PO BID 05/07/16 12/27/24 fumarate 7.5 mg-folic acid 400 mcg tablet calcium carbonate (Calcium 600) 600 mg PO BID 05/01/21 12/27/24 cholecalciferol (vitamin D3) 50 50 mcg PO DAILY 05/01/21 12/27/24 mcg (2,000 unit) capsule clotrimazole-betamethasone 1 1 applic topical BID 05/01/21 12/27/24 %-0.05 % topical cream levothyroxine 75 mcg tablet 137 mcg PO DAILY 05/31/21 12/27/24 (Synthroid) magnesium chelate, malate 125 mg PO DAILY 05/23/22 12/27/24 turmeric 100 mg-emily 150 1 cap PO DAILY 05/23/22 12/27/24 mg-olive 50 mg-oreg 150 mg-capryl capsule dextrin 3 gram/3.5 gram oral powder 3 g PO DAILY 07/22/22 12/27/24 metoprolol succinate 25 mg 50 mg (2 x 25 mg) PO DAILY #180 05/25/23 12/27/24 tablet,extended release 24 hr tabs furosemide 20 mg tablet 20 mg PO DAILY 08/12/24 12/27/24 acetaminophen 500 mg tablet 1,000 mg (2 x 500 mg) PO TID #90 08/24/24 12/27/24 tabs aspirin 81 mg tablet,delayed 81 mg PO DAILY 10/06/24 12/27/24 release (Adult Aspirin Regimen) celecoxib 200 mg capsule See Rx Instructions .Route 11/17/24 12/27/24 .COMPLEX #180 caps mupirocin 2 % topical ointment 1 applic topical DAILY 12/27/24 12/27/24 prednisone 10 mg tablet 10 mg PO DIRECTED #30 tabs 12/27/24 Previous Rx's ?Medication ?Instructions ?Recorded metoprolol succinate 25 mg 50 mg (2 x 25 mg) PO DAILY #180 05/25/23 tablet,extended release 24 hr tabs acetaminophen 500 mg tablet 1,000 mg (2 x 500 mg) PO TID #90 08/24/24 tabs celecoxib 200 mg capsule See Rx Instructions .Route 11/17/24 .COMPLEX #180 caps prednisone 10 mg tablet 10 mg PO DIRECTED #30 tabs 12/27/24 Allergies Allergy/AdvReac Type Severity Reaction Status Date / Time Penicillins Allergy Mild rash Verified 12/27/24 14:39 General Stated Complaint: RashLesion ADAN: 4 Review of Systems Narrative: Review of Systems: Constitutional: No fevers, chills, sweats Eye: No recent visual problems ENT: No ear pain, nasal congestion, sore throat Respiratory: No shortness of breath, cough Cardiovascular: No Chest pain, palpitations, syncope Gastrointestinal: No nausea, vomiting, diarrhea Genitourinary: No hematuria Elmer/Lymph: Negative for bruising tendency, swollen lymph glands Endocrine: Negative for excessive thirst, excessive hunger Musculoskeletal: No back pain, neck pain, joint pain, muscle pain, decreased range of motion Neurologic: Alert & oriented X 4 Psychiatric: No anxiety, depression Exam Narrative Exam Narrative: Exam; vitals signs as reported above normal Constitutional; In no acute distress, afebrile General: cooperative, healthy appearing, comfortable and no acute distress HEENT: Head: normal to inspection, no palpable skull fracture and normocephalic atraumatic Eyes: : appearance normal, both eyes and all related structures EOM intact bilaterally Pupils: PERRL : conjunctiva normal Direct ophthalmoscopy: normal light reflex, normal conjunctiva, normal visual acuity Ears: Normal TM, normal external canal Nose: normal no rhinorreha Neck no JVD, supple non tender Neck: normal visual inspection, full ROM and no lymphadenopathy Chest: normal inspection of the chest Respiratory : normal respiratory effort and able to speak in complete sentences no wheezing no rales Cardio Rate: regular rate, rhythm: regular rhythm normal heart sounds S1 and S2 no murmurs, gallops, or rubs GI : normal to inspection, normal bowel sounds, soft, non tender, non distended, no organomegaly Back/Spine/ no CVA tenderness Thoracic/Lumbar Spine: no tenderness or deformities Skin no rashes or lesions urticarial rash scaling in the right forearm compatible with contact dermatitis Neuro: patient alert oriented x 4 and no meningeal signs, Cranial Nerves: CN's II-XI intact bilaterally, Cognition: normal cognition, Speech: speech normal, Gait: normal gait, Depp tendon reflexes normal 2+ muscle strength 5/5 bilaterally Extremities, no edema, full range of motion, normal strength Course Vital Signs Vital signs: Vital Signs Temperature 36.5 C 12/27/24 14:33 Pulse 73 12/27/24 14:33 Respiratory Rate 16 12/27/24 14:33 Blood Pressure 166/80 H 12/27/24 14:33 Pulse Oximetry 96 12/27/24 14:33 Temperature 36.5 C 12/27/24 14:33 Temperature Source Oral 12/27/24 14:33 Pulse 73 12/27/24 14:33 Respiratory Rate 16 12/27/24 14:33 Blood Pressure 166/80 H 12/27/24 14:33 Pulse Oximetry 96 12/27/24 14:33 Oxygen Delivery Method Room Air 12/27/24 14:33 Oxygen Flow Rate 0 12/27/24 14:33 Medical Decision Making MDM: Summary: Patient who developed a rash came here was treated for an infection with a rash persisted and is very itchy. Was likely the patient has his contact dermatitis so we prescribed a tapering dose of prednisone. Data Review Analysis All the data on this patient was reviewed by me including laboratory and imaging studies as well as bedside studies performed by me Independent review of Studies Imaging Lab: Risk Stratification: Differential Diagnosis: 1. Contact dermatitis 2. Cellulitis 3. Urticaria 4. 5. Consultants: Shared disposition: Patient presents disposition will follow accordingly Impression: PFSH All Active Problems (Updated 12/27/24 @ 15:00 by Mingo Jara MD) Contact dermatitis (Acute) Cellulitis of right forearm (Acute) Cellulitis of right elbow (Acute) Olecranon bursitis, right elbow (Acute) History of total left hip replacement (Acute 08/24/24) LOPES (dyspnea on exertion) (Acute) Denies SOB Osteoarthritis of left knee (Acute) Osteoarthritis of right knee (Chronic) Most recent Depo-Medrol: 05/23/2024 Vertigo (Acute) Low back pain (Acute) Primary osteoarthritis of left hip (Chronic) Atrial fibrillation (Chronic) Medical History Cataract [place] HTN (hypertension) Hypothyroidism Surgical History History of cataract surgery Colonoscopy - IV Sedation (05/07/16) Social History Smoking/Tobacco Use Status: Former Tobacco Use Quit Date: 05/18/00 Smoking risk assessment performed?: Yes Alcohol Intake: current Alcohol Intake frequency: a few times a month Drug use: Never Substance use type: does not use Housing: house Do you feel safe at home: Yes Do you feel safe in your relationship?: Yes
--- NOTE | 2024-12-27 15:55 | NUR.NOTE ---
Nursing Note: Patient had a question about her prescription
== END 2024-12-27 15:31 | disposition home or self-care (01) ==
PROVIDERS: Emergency Provider Emergency Medicine Emergency Medical Services; PCP Family Medicine
DX: L25.9 Unspecified contact dermatitis, unspecified cause (principal)
CPT/HCPCS: 99283 ×2

== ENCOUNTER 2024-12-28 14:51 | Outpatient (REF) | payer MEDICARE, SELFPAY ==
[2024-12-28 16:39] LABS: Folate > 20.0 ng/mL (8.6-20.0); TSH 1.53 uIU/mL (0.36-3.74)
[2024-12-28 22:45] LABS: Vitamin B12 860 pg/mL (193-986)
[2024-12-29 09:55] LABS: Anion Gap 11.4 mmol/L (3-11); BUN 18 mg/dL (7-18); CO2 28.6 mmol/L (21.0-32.0); Calcium 9.7 mg/dL (8.5-10.1); Chloride 90 mmol/L (98-107); Estimated GFR 87.92 (mL/min/1.73m2); Glucose 108 mg/dL (74-106); Potassium 3.9 mmol/L (3.5-5.1); Sodium 130 mmol/L (136-145)
== END 2024-12-28 14:52 | disposition home or self-care (01) ==
LOC: NCHCN 14:51
PROVIDERS: PCP Family Medicine; Visit Provider Family Medicine
DX: E03.9 Hypothyroidism, unspecified (principal)
CPT/HCPCS: 80048; 82607; 82746; 84439; 84443

== ENCOUNTER 2025-01-04 14:48 | Outpatient (REF) | payer MEDICARE, SELFPAY ==
[2025-01-04 17:04] LABS: Anion Gap 7.8 mmol/L (3-11); BUN 24 mg/dL (7-18); CO2 29.2 mmol/L (21.0-32.0); Calcium 8.8 mg/dL (8.5-10.1); Chloride 100 mmol/L (98-107); Estimated GFR 87.92 (mL/min/1.73m2); Glucose 100 mg/dL (74-106); Potassium 3.9 mmol/L (3.5-5.1); Sodium 137 mmol/L (136-145)
== END 2025-01-04 14:49 | disposition home or self-care (01) ==
LOC: NCHCN 14:48
PROVIDERS: PCP Family Medicine; Visit Provider Family Medicine
DX: E87.1 Hypo-osmolality and hyponatremia (principal)
CPT/HCPCS: 80048

== ENCOUNTER 2025-01-24 15:03 | Outpatient (REF) | payer MEDICARE, SELFPAY ==
[2025-01-24 15:16] LABS: Anion Gap 6.9 mmol/L (3-11); BUN 18 mg/dL (7-18); CO2 32.1 mmol/L (21.0-32.0); Calcium 9.6 mg/dL (8.5-10.1); Chloride 99 mmol/L (98-107); Estimated GFR 87.92 (mL/min/1.73m2); Glucose 95 mg/dL (74-106); Potassium 4.2 mmol/L (3.5-5.1); Sodium 138 mmol/L (136-145)
== END 2025-01-24 15:04 | disposition home or self-care (01) ==
LOC: NCHCN 15:03
PROVIDERS: PCP Family Medicine; Visit Provider Family Medicine
DX: I10 Essential (primary) hypertension (principal)
CPT/HCPCS: 80048

== ENCOUNTER → 2025-05-06 13:43 | Outpatient (CLI) | payer MEDICARE, SELFPAY ==
--- NOTE | 2025-05-06 13:30 | DI.RAD_ITS ---
Exam(s) XR HIP RT COMPLETE AP PELVIS EXAM: XR HIP RT COMPLETE AP PELVIS CLINICAL HISTORY: eval pathology, M25.551 Pain in right hip. TECHNIQUE: 2D digital imaging was performed of the right hip. Two images were obtained. AP pelvis and lateral right hip views were obtained. COMPARISON: CR XR HIP LT COMPLETE AP PELVIS from 07/18/2022 CR XR HIP LT COMPLETE AP PELVIS from 05/23/2024 CR XR HIP LT COMPLETE AP PELVIS from 09/08/2024 FINDINGS: BONES: No acute fracture is present. No bony destructive lesion is seen. JOINTS: No dislocation present. The limited visualized portion of the left total hip arthroplasty is unremarkable. There is asymmetric narrowing of the right hip consistent with osteoarthritis. There are degenerative changes seen at the sacroiliac joints. SOFT TISSUE: Normal. IMPRESSION: 1. There is no evidence of an acute fracture or dislocation. 2. The preliminary [facility] report was reviewed. DATA REPOSITORY: RADIATION DOSE DELIVERED:
--- NOTE | 2025-05-06 14:52 | DI.[facility]_ITS ---
PROCEDURE INFORMATION: Exam: XR Right Hip Exam date and time: 05/06/2025 1:55 PM Age: 79 years old Clinical indication: Hip pain; Right hip TECHNIQUE: Imaging protocol: Radiologic exam of the right hip. Views: 2 or 3 views hip with pelvis when performed. COMPARISON: CR XR LUMBAR SPINE COMPLETE 05/15/2023 9:58 AM FINDINGS: Bones/joints: Left total hip replacement. Moderate degenerative changes in the right hip and both sacroiliac joints. There is no evidence of acute fracture.There is no evidence of malalignment or dislocation. Soft tissues: Unremarkable. IMPRESSION: 1. Left total hip replacement. 2. Moderate degenerative changes in the right hip and both sacroiliac joints. 3. There is no evidence of acute fracture.There is no evidence of malalignment or dislocation. Dictated and Authenticated by: Marilee Higgins MD. Orderin Tonie Garcia MD
== END ==
LOC: DI 13:45
PROVIDERS: PCP Family Medicine; Visit Provider Nurse Practitioner Family
DX: M25.551 Pain in right hip (principal)
CPT/HCPCS: 73502

== ENCOUNTER 2025-05-06 15:14 | Outpatient (REF) | payer MEDICARE, SELFPAY ==
[2025-05-06 16:04] LABS: Glucose Negative (Negative)
[2025-05-06 16:12] LABS: Abs Immature Grans 0.03 10^3/uL (0.0-0.06); HCT 40.6 % (36.0-46.0); HGB 13.9 g/dL (11.2-15.7); Immature Grans % 0.4 %; MCH 32.4 pg (27.0-33.0); MCHC 34.2 % (32.0-36.0); MCV 95 fL (80-95); MPV 11.1 fL (8.0-11.0); Platelet Count 187 10^3/uL (130-400); RBC 4.29 10^6/uL (3.93-5.22); RDW 14.1 % (11.7-14.6); RDW-SD 48.6 fL; WBC 7.42 10^3/uL (4.4-10.8)
[2025-05-06 16:22] LABS: RBC Negative HPF (0-2)
[2025-05-06 16:24] LABS: Anion Gap 10.3 mmol/L (3-11); BUN 21 mg/dL (9-23); CO2 27.5 mmol/L (20.0-31.0); Calcium 9.7 mg/dL (8.3-10.6); Chloride 97 mmol/L (98-107); Glucose 90 mg/dL (74-106); Potassium 3.6 mmol/L (3.5-5.1); Sodium 135 mmol/L (136-145)
== END 2025-05-06 15:15 | disposition home or self-care (01) ==
LOC: LBN 15:14
PROVIDERS: PCP Family Medicine; Visit Provider Nurse Practitioner Family
DX: R31.9 Hematuria, unspecified (principal); R82.89 Other abnormal findings on cytological and histological examination of urine
CPT/HCPCS: 80048; 81003; 81015; 85025

== ENCOUNTER → 2025-05-15 10:25 | Outpatient (CLI) | payer MEDICARE, SELFPAY ==
--- NOTE | 2025-05-15 07:00 | DI.US_ITS ---
Exam(s) US RENAL EXAM: US RENAL CLINICAL HISTORY: eval pathology,hematuria,r31.9 TECHNIQUE: Ultrasound of both kidneys performed using standard protocol. COMPARISON: None FINDINGS: RIGHT KIDNEY: Measures 10.7 cm in length. No cysts evident. Normal cortical thickness and corticomedullary differentiation .No solid masses No intrarenal calculi nor hydronephrosis. LEFT KIDNEY: Measures 0.6 cm in length. There is a benign cyst in the left kidney measuring 2.3 x 3.0 cm. This does not require further imaging workup. Normal cortical thickness and corticomedullary differentiaion. No solids masses. No intrarenal calculi nor hydonephrosis. URINARY BLADDER: Prevoid volume is 68 cc Postvoid volume is 0 cc No evidence of bladder mass nor diverticuli. Ureterovesical jets: Both not identified. IMPRESSION: 1. No significant ultrasound findings in the kidneys. No calculi. No hydronephrosis. 2. No obvious abnormality in the urinary bladder. DATA REPOSITORY:
--- NOTE | 2025-05-15 11:41 | DI.[facility]_ITS ---
PROCEDURE INFORMATION: Exam: US Retroperitoneal, Complete, Kidneys and Bladder Exam date and time: 05/15/2025 10:27 AM Age: 79 years old Clinical indication: Other: Hematuria TECHNIQUE: Imaging protocol: Real-time ultrasound of the retroperitoneum with image documentation. Complete exam focused on the bilateral kidneys and urinary bladder. COMPARISON: CR XR HIP RT COMPLETE AP PELVIS 05/06/2025 1:55 PM FINDINGS: Size and morphology of both kidneys is normal. Echogenicity normal. No hydronephrosis. No solid mass. No perinephric fluid collections. Right kidney: 10.7 x 5 x 4.2 cm. Left kidney: 10.6 x 5.6 x 4.7 cm. Simple appearing cyst midpole 2.3 x 3 x 2.2 cm. Urinary bladder: Bladder is unremarkable.The urinary bladder is poorly distended. Prevoid volume 70 cc. No postvoid residual volume. IMPRESSION: Unremarkable renal ultrasound other than a simple cyst within the left kidney. Dictated and Authenticated by: Herb Lam MD. Orderin Tonie Garcia MD
== END ==
LOC: DI 10:25
PROVIDERS: PCP Family Medicine; Visit Provider Nurse Practitioner Family
DX: R31.9 Hematuria, unspecified (principal); R82.89 Other abnormal findings on cytological and histological examination of urine
CPT/HCPCS: 76770

== ENCOUNTER 2025-05-16 13:19 | Outpatient (REF) | payer MEDICARE, SELFPAY | END 2025-05-16 13:20 | disposition home or self-care (01) | LOC: NCHCN 13:19 | PROVIDERS: PCP Family Medicine; Visit Provider Family Medicine | DX: N89.8 Other specified noninflammatory disorders of vagina (principal) | CPT/HCPCS: 87480; 87510; 87660 ==